=== PATIENT | female | born 1950 | race Caucasian/White ===

== ENCOUNTER → 2017-01-23 | Outpatient (CLI) | payer MEDICARE ==
[~2017-01-23] MED LIST: ACCUNEB 0.1.25 MG/1 INH; ADVAIR DISKUS 21 DSK INH; ASPIRIN81 M1 PO; ATIVAN0.5 MG PO; AVELOX400 MG PO; CLARITIN10 MG PO; FENOFIBRATE MIC67 MG PO; HYDR12.5C PO; LOMOTIL 0.025 M1 TA1 PO; LOSARTAN POT TAB 100; LOSARTAN POT TAB 100 PO; MEDROL DOSEPAK4 MG PO; METFORMIN500 MG PO; PERCOCET 325 MG1 TA2 PO; PREVACID30 M1 PO; PROVENTIL0.09 MG/AC INH; SINGULAIR4 MG PO; TENORMIN25 MG PO; TRICOR145 MG PO; Transderm-Nitr0.2 MG TD; VIBRAMYCIN100 MG PO; ZOLOFT50 MG PO; [UNRECOGNIZED DRUG - OTHER] PO
== END | disposition home or self-care (01) ==
LOC: LAB 13:44
DX: D50.8 Other iron deficiency anemias (principal)

== ENCOUNTER 2017-02-06 12:56 | Inpatient (IN) | payer MEDICARE ==
[~2017-02-06] VITALS: Ht 175.2 cm; Wt 90.5 kg
--- NOTE | ~2017-02-06 | PR ---
[place], [place] PROGRESS NOTE NAME: JULIETH VALDES UNIT #: [id number] ROOM: 415 DOCTOR: CANDIE SERRANO MD BIRTHDATE: [birth year] DOS: 02/09/2017 PULMONARY FOLLOWUP NOTE SUBJECTIVE: She has been noted comfortable at the present time, has not been noted any symptoms of chest pain. Coughing has been still noted moderate to severe. The patient without any sputum expectoration. OBJECTIVE: VITAL SIGNS: The patient showed normal temperature, respiratory rate 20, heart rate 67, blood pressure 178/87. Pulse oxygen saturation noted on room air 96% saturation. HEENT: Examination shows no acute change. NECK: Supple. CARDIOVASCULAR: S1, S2 audible. LUNGS: Noted without any crackles. Mild to moderate expiratory wheezing. ABDOMEN: Soft, nontender. LABORATORY DATA: Culture of the sputum of the patient noted light growth of MRSA. IMPRESSION: 1. Acute methicillin-resistant Staphylococcus aureus tracheobronchitis with exacerbation of chronic obstructive pulmonary disease for the patient as well. 2. Mild obesity. PLAN OF TREATMENT: The patient has been ordered Zyvox orally and also getting vancomycin and Zithromax. Rocephin was also continued. This had been ordered by the primary care physician. Plan of management; discontinuation of unnecessary antibiotics. Plan for bronchoscopy in the morning for this patient. The risks and benefits already known by the patient. Discontinue use of the vancomycin, Rocephin and Zithromax. Also, decrease the dose of Solu-Medrol to 60 mg b.i.d. from today's dose as well. Further treatment changes will be done based on the progression of the illness. [place], [place] PROGRESS NOTE NAME: JULIETH VALDES UNIT #: [id number] ROOM: 415 DOCTOR: CANDIE SERRANO MD BIRTHDATE: [birth year] CANDIE LOERA MD CM:PNTRANS [id number] CANDIE ALVES MD 02/10/17 0025 interface
--- NOTE | ~2017-02-06 | PROC NOTE ---
[place], [place] PROCEDURE NOTE NAME: JULIETH AVLDES UNIT #: [id number] ROOM: 415 DOCTOR: LUZ MARIA ALVES MD,CANDIE BIRTHDATE: [birth year] DOS: 02/10/2017 PROCEDURE: Bronchoscopy. PREOPERATIVE DIAGNOSIS: Severe nonresolving cough. POSTOPERATIVE DIAGNOSIS: Ongoing acute tracheobronchitis with removal of the endobronchial secretion patient and mucus plugs bilaterally. PROCEDURE DESCRIPTION: Informed consent obtained for the patient. The patient was brought to the OR and placed in supine position. Conscious sedation was administered by the Anesthesia Department after achieving appropriate sedation and airway introduced in the mouth. Bronchoscope advanced into the airway into laryngeal area. Epiglottis and vocal cords were seen. Bronchoscope advanced to the vocal cord and tracheal lumen moderate amount of thick mucus secretion severe inflammatory changes, some mucosal edema. All secretions suctioned out patient to the debby level. Right upper, right middle, right lower, left upper and lingular lower lobe bronchi were all examined. The patient was noted findings of severe acute tracheobronchitis with friable mucosa as well. Secretions and infection in the mucus plug and endobronchial tree was cleared out with help of normal saline wash without any difficulty. Procedure was tolerated by the patient without any complications. No changes on modification in the treatment at this time will be necessary. The patient already known with MRSA tracheobronchitis, which has been treated with the antibiotics. Solu-Medrol will be continued the same dose. CANDIE LOERA MD CM:PROCNOTE:PROCEDURE NOTE [id number] CANDIE ALVES MD
--- NOTE | ~2017-02-06 | CON ---
[place], [place] REPORT OF CONSULTATION NAME: JULIETH VALDES [facility] #: [id number] UNIT #: [id number] ROOM: 415 DOCTOR: CANDIE SERRANO MD BIRTHDATE: [birth year] DOS: 02/08/2017 CONSULTATION REQUESTED BY: Hospitalist Service. REASON FOR CONSULTATION: Nonresolving symptoms of acute exacerbation of COPD. HISTORY OF PRESENT ILLNESS: This is a 66-year-old female who has been known to me from the past. She has been seen in my office about a week ago for the patient as the patient started with symptoms of having upper respiratory tract infection with excessive nasal drainage, nasal congestion related to noted with a cough with some sputum expectoration. The patient's symptoms have been noted progressive worsening for the patient. She has been prescribed the antibiotics for the patient orally as well as a tapering dose of prednisone. The patient did not respond to the treatment for that. She contacted my office again and was advised to come to the hospital for further assessment and management of her ongoing nonresolving respiratory symptoms. The patient has been assessed and currently admitted to the hospital for further medical management. The patient denies any symptoms of chest pain. Denies symptoms of hemoptysis. The cough has been still noted moderate severe for the patient only scant amount of sputum expectoration. She has noted partial improvement in symptoms since admission in the last 24 hours. REVIEW OF SYSTEMS: CONSTITUTIONAL: Fatigue and tiredness. The patient noted without any symptoms of fever or chills. EYES: Denied any burning, redness, or tenderness. EARS, NOSE, THROAT: No sore throat, hoarseness, otalgia, or postnasal drainage. CARDIOVASCULAR: Denies anginal pain, edema, pain of the lower extremities. GASTROINTESTINAL: Denies dysphagia, nausea, vomiting, diarrhea, abdominal pain, hematemesis, melena, or hematochezia. SKIN: Denies lesions or rashes. MUSCULOSKELETAL: Denies acute pain for this patient or loss of muscle mass. CENTRAL NERVOUS SYSTEM: Denies dizziness, headache, diplopia or syncopal episodes. The remaining systems were reviewed with the patient, they were noted all negative. PAST MEDICAL HISTORY: 1. Uncomplicated severe persistent bronchial asthma. 2. History of severe allergic rhinitis as well. 3. History of general anxiety disorder. 4. Essential hypertension. PAST SURGICAL HISTORY: 1. Cholecystectomy. 2. Cardiac catheterization and no acute coronary intervention needed; the catheterization done about 12-13 years ago. SOCIAL HISTORY: The patient is , has 2 children, nonsmoker lifetime. Denies history of alcohol or illicit drug use or tobacco use. [place], [place] REPORT OF CONSULTATION NAME: JULIETH VALDES UNIT #: [id number] ROOM: [facility] DOCTOR: CANDIE SERRANO MD BIRTHDATE: [birth year] FAMILY HISTORY: The patient reported as father at age 72 due to complications of coronary artery disease with surgery. The mother at age 7373 years old with complications related to bronchial asthma. MEDICATIONS: The patient noted as listed for the patient at the time of admission from the home for the patient uses: 1. Zithromax recently. 2. Tapering dose of prednisone. 3. Albuterol sulfate via nebulizer for the patient 1.25 mg t.i.d. 4. Advair 500/50 one puff b.i.d. 5. Aspirin 81 mg p.o. daily. 6. Tenormin 50 mg p.o. b.i.d. 7. Tricor 145 mg daily. 8. Hydrochlorothiazide 25 mg daily. 9. Losartan 100 mg p.o. daily. 10. Metformin 500 mg p.o. daily. 11. Singulair 10 mg daily. 12. Multivitamin 1 p.o. daily. 13. Protonix 40 mg daily. ALLERGIES: The drug allergies noted as: 1. AVELOX. 2. IBUPROFEN. 3. TETRACYCLINE. 4. TRAZODONE. 5. SULFA DRUGS. PHYSICAL EXAMINATION: GENERAL: A 66-year-old female who has been currently noted sitting on the bed for the patient without any distress. Height of 5 feet 9 inches, weight of 199 pounds, BMI 29.4. VITAL SIGNS: For the patient which were recorded showed the temperature noted normal, respiratory rate 17-20, heart rate of 70-63, blood pressure 156/81, patient 145/75. HEENT: Shows head was atraumatic. Eyes nonicterus. NECK: Supple. CARDIOVASCULAR: S1, S2 is audible. No added sounds. LUNGS: The patient noted with moderate decreased breath sounds. Diffuse expiratory wheezing. There were no crackles. ABDOMEN: Soft, nontender. EXTREMITIES: Show no edema, clubbing, cyanosis. CENTRAL NERVOUS SYSTEM: Cranial nerves 2 through 12 intact. MUSCULOSKELETAL: No deformities. SKIN: No lesions or rashes. LABORATORY DATA: CBC of the patient on February 06 was noted hemoglobin 10.4, hematocrit 32.9 and platelet count 408,000. The CMP of the patient of 02/06, glucose 195, BUN 25, creatinine was normal, remaining electrolytes normal. [place], [place] REPORT OF CONSULTATION NAME: JULIETH VALDES UNIT #: [id number] ROOM: [facility] DOCTOR: LUZ MARIA ALVES MD,[facility] BIRTHDATE: [birth year] CK-MB is reported for and for all noted normal. The CBC of the patient of yesterday shows WBC count 12.3, hemoglobin of 10.5, hematocrit 32.9, platelet count 514,000. CMP of the patient on 01/07, glucose 171, BUN 25, creatinine was normal. The echocardiogram for the patient that was done for the patient on 01/07/2017 for the patient was described by Dr. Champion for the patient with findings of mild concentric LVH with the patient with a normal left ventricular functions. Grade 1 diastolic dysfunctions were described. Culture of the sputum for the patient was showing normal stevan from yesterday. Gram stain of the patient on 02/07 reported as many white blood cells, moderate gram-positive cocci in pairs and clusters and few budding yeast. The chest x-ray of the patient that was done on 02/06/2017 does not show any acute pulmonary infiltration. IMPRESSION: 1. The patient with failed outpatient treatment, currently admitted to the hospital noted with acute exacerbation of uncomplicated severe persistent bronchial asthma and acute bacterial bronchitis. Severe symptom for the patient was still noted at this time, which has been treated with the medications appropriately. According to the niece, the cough still remains persistent and was suggestive of mucus impaction since the patient has not been responding to treatment significantly at this time, minimal sputum expectoration was noted. PLAN OF TREATMENT: Plan for bronchoscopy for patient on Friday morning. Continue current antibiotics, corticosteroids and other medications administration. Mucinex will be added for the patient for treatment the patient to help improve the secretion clearance and the patient mobilize secretions. Other supportive therapy, plan of management and care. Thanks for allowing me to participate in the care of this patient. CANDIE LOERA MD CM:CONSTR:REPORT OF CONSULTATION 1252 02/09/17 0217 interface
--- NOTE | ~2017-02-06 | PR ---
[place], [place] PROGRESS NOTE NAME: [facility]DES [id number] UNIT #: [id number] ROOM: 415 DOCTOR: LUZ MARIA ALVES MD,CANDIE BIRTHDATE: [birth year] DOS: 02/11/2017 SUBJECTIVE: She had a bronchoscopy done yesterday with significant reduction and improvement in the cough was noted. Shortness of breath and wheezing has been improving progressively. There were no symptoms of chest pain. OBJECTIVE: VITAL SIGNS: Normal temperature, respiratory rate 20, heart rate 94, blood pressure 119/52. The pulse oxygen saturation of the patient recorded as 97% on 2 L nasal cannula. HEENT: Showed no acute change. NECK: Supple. CARDIOVASCULAR: S1, S2 audible. LUNGS: Noted without any wheezing or crackles at the present time. Breath sounds noted moderate decreased bilaterally. ABDOMEN: Soft and nontender. LABORATORY DATA: The Gram stain of the bronchial washing was noted, few white blood cells, moderate epithelial cells, moderate gram-positive cocci in pairs. Budding yeast, moderate growth of yeast was noted. Preliminary findings of culture results were pending. IMPRESSION: The patient who has been currently noted with acute exacerbation of bronchial asthma, acute tracheobronchitis with methicillin-resistant Staphylococcus aureus is responding to treatment. Bronchoscopy resulted further significant improvement and resolution of the acute complaints. PLAN OF TREATMENT: The patient could be discharged home on oral antibiotics, bronchodilators, and oxygen supplementation. Other supportive therapy, plan of management continued. Usual care. CANDIE LOERA MD CM:PNJONATHAN [id number] CANDIE ALVES MD 02/11/17 1343 interface
--- NOTE | ~2017-02-06 | PR ---
[place], [place] PROGRESS NOTE NAME: JULIETH VALDES UNIT #: [id number] ROOM: 415 DOCTOR: CANDIE SERRANO MD BIRTHDATE: [birth year] DOS: 02/10/2017 PULMONARY PROGRESS NOTE SUBJECTIVE: The patient was seen and examined on 02/10/2017. The patient has been noted comfortable at this time without any distress. The cough has been noted essentially the same. She is currently noted n.p.o. past midnight for bronchoscopy planned for this morning as well. Denies symptoms of chest pain. OBJECTIVE: VITAL SIGNS: For the patient, which have been recorded showed the temperature of the patient noted as normal. The respiratory rate of the patient recorded as 18, heart rate 75, blood pressure 151/106. The pulse oxygen saturation of the patient noted on room air as 99% saturation. HEENT: Shows no new change. NECK: Supple. CARDIOVASCULAR: S1, S2 audible. LUNGS: Noted with moderate decreased breath sounds with expiratory wheezing. No crackles. ABDOMEN: Soft, nontender. LABORATORY DATA: BMP today, glucose 180, BUN 30, creatinine was normal. CBC this morning, WBC count 17.6, hemoglobin 11.4, hematocrit 35.4, platelet count 647,000. IMPRESSION: 1. The patient with ongoing acute exacerbation of bronchial asthma, acute tracheobronchitis persistence nonproductive cough. 2. Mild azotemia secondary to corticosteroids. 3. Leukocytosis, most likely steroid induced. PLAN OF TREATMENT: Proceed with the bronchoscopy as planned for the patient today. No other change in the treatment of the patient at this time will be necessary. Supportive plan and management and other care. Usual treatment. Any modification in treatment if necessary will be done after bronchoscopy. [place], [place] PROGRESS NOTE NAME: JULIETH VALDES UNIT #: [id number] ROOM: 415 DOCTOR: CANDIE SERRANO MD BIRTHDATE: [birth year] CANDIE LOERA MD CM:PNTRANS [id number] CANDIE ALVES MD 02/10/17 1413 interface
[2017-02-06 13:00] VITALS: BP 162/83
[2017-02-06] MEDS ORDERED: PREDNISONE10 MG PO (13:24)
[2017-02-06] MEDS ORDERED: ZITHROMAX250 MG PO (13:25)
[2017-02-06 13:33] LABS: HEMATOCRIT 32.9 % (37.0-47.0); HEMOGLOBIN 10.4 g/dl (12.0-16.0); MEAN CORPUSCULAR HGB 24.6 pg (27.0-31.0); MEAN CORPUSCULAR HGB CONC 31.6 g/dl (33.0-37.0); MEAN PLATELET VOLUME 9.6 fl (9.6-12.3); PLATELET COUNT AUTOMATED 408 10*3/uL (130-400); RED BLOOD COUNT 4.22 10*6/uL (4.10-5.10)
[2017-02-06 13:47] LABS: ALBUMIN 3.8 gm/dl (3.1-4.5); ALKALINE PHOSPHATASE 79 U/L (45-117); BILIRUBIN, TOTAL 0.2 mg/dl (0.2-1.0); BUN 25 mg/dl (7-24); CARBON DIOXIDE 25 mmol/L (21-32); CHLORIDE 102 mmol/L (98-107); EST GLOM FILT AFRICAN AMERICAN > 60 ml/min; GLUCOSE 195 mg/dL (65-99); POTASSIUM 3.9 mmol/L (3.5-5.1); SGOT/AST 24 IU/L (3-35); SGPT/ALT 24 U/L (12-78); SODIUM 140 mmol/L (136-145); TOTAL PROTEIN 7.7 gm/dL (6.4-8.2)
[2017-02-06 13:56] LABS: LYMPHOCYTE # 0.9 10*3/uL (1.3-4.4); METAMYELOCYTES 1 % (0-0); MONOCYTE # 0.3 10*3/uL (0.1-1.0); MYELOCYTES 1 % (0-0); NEUTROPHIL # 8.6 10*3/uL (2.3-7.9); NEUTROPHILS 86 % (47-73); TOTAL CELLS COUNTED 100 #CELLS
[2017-02-06 13:57] LABS: HYPOCHROMIA SLIGHT; MICROCYTOSIS SLIGHT; PLATELET SUFFICIENCY NORMAL (NORMAL)
[2017-02-06 14:26] VITALS: BP 135/80
[2017-02-06] MEDS ORDERED: COZAAR100 MG PO (15:40)
[2017-02-06] MEDS ORDERED: SINGULAIR10 M1 PO (15:41)
[2017-02-06] MEDS ORDERED: TENORMIN50 MG PO (15:41)
[2017-02-06] MEDS ORDERED: MULTI-DAY VITA1 EACH PO (15:42)
[2017-02-06] MEDS ORDERED: ADVAIR DISKUS 51 DSK INH (15:43)
[2017-02-06] MEDS ORDERED: PROTONIX40 MG PO (15:44)
[2017-02-06] MEDS ORDERED: TRAZODONE50 MG PO (15:45)
[2017-02-06] MEDS ORDERED: PROVENTIL0.09 MG/A1 INH (15:46)
[2017-02-06 16:00] VITALS: BP 156/82
[2017-02-06 20:00] VITALS: BP 137/90
[2017-02-07] VITALS: BP 125/58
[2017-02-07 06:29] LABS: HEMATOCRIT 32.9 % (37.0-47.0); HEMOGLOBIN 10.5 g/dl (12.0-16.0); MEAN CORPUSCULAR HGB 24.6 pg (27.0-31.0); MEAN CORPUSCULAR HGB CONC 31.9 g/dl (33.0-37.0); PLATELET COUNT AUTOMATED 514 10*3/uL (130-400); RED BLOOD COUNT 4.27 10*6/uL (4.10-5.10); RED CELL DISTRI WIDTH 14.8 % (0-14.5); WHITE BLOOD COUNT 12.3 10*3/uL (4.8-10.8)
[2017-02-07 06:50] LABS: HYPOCHROMIA SLIGHT; LYMPHOCYTE # 2.3 10*3/uL (1.3-4.4); METAMYELOCYTES 3 % (0-0); MICROCYTOSIS SLIGHT; NEUTROPHIL # 8.6 10*3/uL (2.3-7.9); NEUTROPHILS 70 % (47-73); PLATELET SUFFICIENCY HIGH (NORMAL); TOTAL CELLS COUNTED 100 #CELLS
[2017-02-07 06:58] LABS: ALBUMIN 3.6 gm/dl (3.1-4.5); ALKALINE PHOSPHATASE 76 U/L (45-117); BILIRUBIN, TOTAL 0.2 mg/dl (0.2-1.0); BUN 25 mg/dl (7-24); CARBON DIOXIDE 28 mmol/L (21-32); CHLORIDE 100 mmol/L (98-107); CHOLESTEROL 227 mg/dL (<200); EST GLOM FILT AFRICAN AMERICAN > 60 ml/min; GLUCOSE 171 mg/dL (65-99); HDL CHOLESTEROL 42 mg/dl (40-60); LDL CHOLESTEROL 127 mg/dL (9-159); MAGNESIUM 2.2 mg/dL (1.5-2.1); PHOSPHOROUS 3.5 mg/dL (2.5-4.9); POTASSIUM 3.9 mmol/L (3.5-5.1); SGOT/AST 15 IU/L (3-35); SGPT/ALT 24 U/L (12-78); SODIUM 139 mmol/L (136-145); TOTAL PROTEIN 7.5 gm/dL (6.4-8.2); TRIGLYCERIDES 289 mg/dl (<150); VLDL CHOLESTEROL 58 mg/dL (6-40)
[2017-02-07 07:03] LABS: THYROID STIM HORMONE (HS) 0.297 uIU/ml (0.358-4.75)
[2017-02-07 07:04] LABS: VITAMIN D, 25-HYDROXY 32.6 ng/mL (30-100)
[2017-02-07 07:05] LABS: FOLIC ACID 20.08 ng/mL (>5.38)
[2017-02-07 08:00] VITALS: BP 176/88
[2017-02-07 12:00] VITALS: BP 140/86
[2017-02-07 16:00] VITALS: BP 129/70
[2017-02-07 20:22] VITALS: BP 128/76
[2017-02-08] VITALS: BP 145/75
[2017-02-08 04:00] VITALS: BP 145/75
[2017-02-08 08:00] VITALS: BP 156/80
[2017-02-08 11:50] LABS: INTERNATIONAL NORM RATIO 0.9 (2.0-3.5); PROTHROMBIN TIME 9.7 SECONDS (9.0-12.4)
[2017-02-08 12:00] VITALS: BP 142/65
[2017-02-08 12:40] LABS: COL/ADP 155 SECONDS (63-105); COL/EPI > 300 SECONDS (86-157)
[2017-02-08 16:00] VITALS: BP 146/85
[2017-02-08 20:00] VITALS: BP 156/90
[2017-02-09] VITALS: BP 142/60
[2017-02-09 08:00] VITALS: BP 141/67
[2017-02-09] MEDS ORDERED: LINEZOLID600 MG PO (11:51)
[2017-02-09 12:00] VITALS: BP 178/87
[2017-02-09 16:00] VITALS: BP 136/77
[2017-02-09 20:00] VITALS: BP 139/64
[2017-02-10] VITALS (9 sets, daily range): BP systolic 130–189; BP diastolic 61–106
[2017-02-10 06:10] LABS: HEMATOCRIT 35.8 % (37.0-47.0); HEMOGLOBIN 11.4 g/dl (12.0-16.0); MEAN CORPUSCULAR HGB 24.5 pg (27.0-31.0); MEAN CORPUSCULAR HGB CONC 31.8 g/dl (33.0-37.0); MEAN PLATELET VOLUME 9.9 fl (9.6-12.3); PLATELET COUNT AUTOMATED 647 10*3/uL (130-400); RED BLOOD COUNT 4.65 10*6/uL (4.10-5.10); RED CELL DISTRI WIDTH 14.5 % (0-14.5); WHITE BLOOD COUNT 17.6 10*3/uL (4.8-10.8)
[2017-02-10 06:42] LABS: BUN 30 mg/dl (7-24); CARBON DIOXIDE 31 mmol/L (21-32); CHLORIDE 99 mmol/L (98-107); EST GLOM FILT AFRICAN AMERICAN > 60 ml/min; GLUCOSE 180 mg/dL (65-99); POTASSIUM 4.3 mmol/L (3.5-5.1); SODIUM 138 mmol/L (136-145)
[2017-02-10 06:43] LABS: INTERNATIONAL NORM RATIO 0.9 (2.0-3.5)
[2017-02-10 06:48] LABS: LYMPHOCYTE # 3.5 10*3/uL (1.3-4.4); METAMYELOCYTES 1 % (0-0); MONOCYTE # 1.1 10*3/uL (0.1-1.0); MYELOCYTES 2 % (0-0); NEUTROPHIL # 12.5 10*3/uL (2.3-7.9); NEUTROPHILS 71 % (47-73); TOTAL CELLS COUNTED 100 #CELLS
[2017-02-10 06:49] LABS: HYPOCHROMIA SLIGHT; MICROCYTOSIS SLIGHT; PLATELET SUFFICIENCY HIGH (NORMAL)
[2017-02-11] VITALS: BP 114/62
[2017-02-11 08:00] VITALS: BP 119/52
[2017-02-11 12:00] VITALS: BP 178/80
[2017-02-11 13:08] LABS: ACID FAST SPEC PROCESSING Concentration (.)
[2017-02-12] MEDS ORDERED: PREDNISONE10 MG PO (08:47)
== END 2017-02-11 13:47 | disposition home or self-care (01) | DRG 871 ==
LOC: ED 12:56 → 4E 14:22 → EDHOLD 14:22 → 4E 14:29
PROVIDERS: Hospitalist; Internal Medicine; Internal Medicine Critical Care Medicine; Student in an Organized Health Care Education/Training Program
PROC: 0BC58ZZ Extirpation of Matter from Right Middle Lobe Bronchus, Via Natural or Artificial Opening Endoscopic (ICD-10-PCS; principal; 2017-02-10)
PROC: 0BC68ZZ Extirpation of Matter from Right Lower Lobe Bronchus, Via Natural or Artificial Opening Endoscopic (ICD-10-PCS; principal; 2017-02-10)
PROC: 0BC88ZZ Extirpation of Matter from Left Upper Lobe Bronchus, Via Natural or Artificial Opening Endoscopic (ICD-10-PCS; principal; 2017-02-10)
PROC: 0BC48ZZ Extirpation of Matter from Right Upper Lobe Bronchus, Via Natural or Artificial Opening Endoscopic (ICD-10-PCS; principal; 2017-02-10)
PROC: 0BC98ZZ Extirpation of Matter from Lingula Bronchus, Via Natural or Artificial Opening Endoscopic (ICD-10-PCS; principal; 2017-02-10)
DX: A41.9 Sepsis, unspecified organism (principal); J18.9 Pneumonia, unspecified organism; T17.890A Other foreign object in other parts of respiratory tract causing asphyxiation, initial encounter; J44.0 Chronic obstructive pulmonary disease with (acute) lower respiratory infection; J45.51 Severe persistent asthma with (acute) exacerbation; J44.1 Chronic obstructive pulmonary disease with (acute) exacerbation; J20.9 Acute bronchitis, unspecified; F41.1 Generalized anxiety disorder; I10 Essential (primary) hypertension; D50.9 Iron deficiency anemia, unspecified; D47.3 Essential (hemorrhagic) thrombocythemia; E78.5 Hyperlipidemia, unspecified; R73.9 Hyperglycemia, unspecified; B95.62 Methicillin resistant Staphylococcus aureus infection as the cause of diseases classified elsewhere; E66.9 Obesity, unspecified; R79.89 Other specified abnormal findings of blood chemistry; T38.0X5A Adverse effect of glucocorticoids and synthetic analogues, initial encounter; Z90.49 Acquired absence of other specified parts of digestive tract; Z82.49 Family history of ischemic heart disease and other diseases of the circulatory system; Z82.5 Family history of asthma and other chronic lower respiratory diseases; Z88.1 Allergy status to other antibiotic agents; Z88.6 Allergy status to analgesic agent; Z88.2 Allergy status to sulfonamides; Z79.82 Long term (current) use of aspirin; Z79.84 Long term (current) use of oral hypoglycemic drugs; Z79.899 Other long term (current) drug therapy; Z68.33 Body mass index [BMI] 33.0-33.9, adult; X58.XXXA Exposure to other specified factors, initial encounter; Y92.89 Other specified places as the place of occurrence of the external cause; Y93.89 Activity, other specified; Y99.8 Other external cause status

== ENCOUNTER → 2017-02-26 | Outpatient (CLI) | payer MEDICARE ==
[~2017-02-26] MED LIST changes: +ADVAIR DISKUS 51 DSK INH; +COZAAR100 MG PO; +LINEZOLID600 MG PO; +MULTI-DAY VITA1 EACH PO; +PREDNISONE10 MG PO; +PROTONIX40 MG PO; +PROVENTIL0.09 MG/A1 INH; +SINGULAIR10 M1 PO; +TENORMIN50 MG PO; +TRAZODONE50 MG PO; +ZITHROMAX250 MG PO
== END | disposition home or self-care (01) ==
LOC: LAB 10:27
DX: A09 Infectious gastroenteritis and colitis, unspecified (principal)

== ENCOUNTER 2017-08-06 13:09 | Inpatient (IN) | payer MEDICARE ==
[~2017-08-06] VITALS: Ht 157.5 cm; Wt 82.4 kg
--- NOTE | ~2017-08-06 | EKG ---
[place], [place] ELECTROCARDIOGRAM REPORT NAME: JULIETH VALDES UNIT #: [id number] ROOM: [facility] DOCTOR: LUZ MARIA ALVES MD,CANDIE BIRTHDATE: [birth year] DOS: 08/09/2017 ELECTROCARDIOGRAM TIME: Done at 11:00 a.m. Normal sinus rhythm were noted. The patient with heart rate of 76 beats per minute. Abnormal R-wave progression was noted in the lateral leads. Possibility of inferior myocardial infarction was also suspected. CANDIE LOERA MD CM:EKGRPT:ELECTROCARDIOGRAM REPORT CANDIE ALVES MD
--- NOTE | ~2017-08-06 | PR ---
[place], [place] PROGRESS NOTE [id number] UN[facility] #: [id number] ROOM: 520 DOCTOR: LUZ MARIA ALVES MD,CANDIE BIRTHDATE: [birth year] DOS: 08/08/2017 SUBJECTIVE: She has been noted with reduction of respiratory symptoms from yesterday, but still noted with nonproductive cough with wheezing and shortness of breath. Denies symptoms of chest pain. OBJECTIVE: VITAL SIGNS: Afebrile status, respiratory rate 20, heart rate 84, blood pressure 160/88 recorded this morning. Pulse oxygen saturation on room air 98% saturation recorded. HEENT: No acute change. NECK: Supple. CARDIOVASCULAR: S1, S2 audible. LUNGS: Noted with decreased breath sounds in the lungs with moderate expiratory wheezing, without any crackles. ABDOMEN: Soft, nontender, and obese. EXTREMITIES: No edema. LABORATORY DATA: Glucose 188. Otherwise, BMP normal. CBC: WBC count 14.8, hemoglobin 9.5, hematocrit 30.2, platelet count 473,000, and 86% segmented neutrophils noted with differential. IMPRESSION: 1. The patient with acute exacerbation of uncomplicated, severe, persistent bronchial asthma, acute bronchitis, viral or bacterial at this time was not clear. 2. Chronic obesity. PLAN OF MANAGEMENT: Continue current dose of corticosteroids and bronchodilators since partial improvement occurred in the respiratory symptoms. Monitor results of the respiratory viral panel. Other supportive plan of management therapy and care. CANDIE LOERA MD CM:PNTRANS [id number] CANDIE ALVES MD 08/08/17 1434 interface
--- NOTE | ~2017-08-06 | PR ---
[place], [place] PROGRESS NOTE NAME: JULIETH VALDES UNIT #: [id number] ROOM: 520 DOCTOR: CANDIE SERRANO MD BIRTHDATE: [birth year] DOS: 08/09/2017 SUBJECTIVE: She had developed significant cough for the patient, but still remain nonproductive. She was also complaining of having choking spell that she would try to eat solid food. Denies symptoms of hemoptysis. Given symptomatic management cough, continue corticosteroids, bronchodilators, and other intervention. OBJECTIVE: VITAL SIGNS: The patient showed normal temperature, respiratory rate 20, heart rate 96, blood pressure 124/61 and 164/94. Intake is 2800 mL of 4600 mL. Pulse oxygen saturation on room air 98% saturation. HEENT: Showed no acute change. NECK: Supple. CARDIOVASCULAR: S1, S2 is audible. LUNGS: Moderate decreased breath sounds, expiratory wheezing, noted partially decreased from previous examination. ABDOMEN: Soft, nontender and obese. EXTREMITIES: Without edema. LABORATORY DATA: Culture of the sputum preliminary showed normal stevan from 08/08/2017, and also 08/08/2017, many white blood cells, moderate epithelial cells, gram-positive cocci in pairs and chains with few gram-positive cocci in clusters and budding yeast. IMPRESSION: 1. The patient has been noted with ongoing severe exacerbation of uncomplicated severe persistent bronchial asthma, acute tracheobronchitis. 2. Acute dysphagia to the solid rule out the esophageal stricture as well. 3. The patient with obesity. PLAN OF MANAGEMENT: GI consultation will be obtained for the patient for endoscopy assessment of current dysphagia, possible esophageal stricture may be considered likely, continue current dose of corticosteroids and other symptomatic management of cough. She was planned for bronchoscopy to be done Friday to improve the mucus clearance of mucus plug from the major airways. Other supportive therapy, plan of management continue previously. Usual care and therapies. [place], [place] PROGRESS NOTE NAME: JULIETH VALDES UNIT #: [id number] ROOM: 520 DOCTOR: CANDIE SERRANO MD BIRTHDATE: [birth year] CANDIE LOERA MD CM:PNTRANS [id number] 1416 CANDIE ALVES MD 08/09/17 1416 interface
--- NOTE | ~2017-08-06 | CON ---
[place], [place] REPORT OF CONSULTATION NAME: JULIETH VALDES [facility] #: [id number] UNIT #: [id number] ROOM: 520 DOCTOR: LUZ MARIA ALVES MD,CANDIE BIRTHDATE: [birth year] DOS: 08/07/2017 REASON FOR CONSULTATION: To assess the patient for increased her respiratory symptoms with exacerbation of COPD. HISTORY OF PRESENT ILLNESS: A 67-year-old white female who has been seen in my office this Friday. She presented to my office as she developed acute respiratory symptom for about 3 days, over the weekend starting Friday. The patient was prescribed amoxicillin. She was only noted symptoms of cough, which is described moderate without any sputum expectoration. She was not noted any symptoms of wheezing or shortness of breath. The patient started taking the medication. The symptoms had been noted worsened significantly the in the next 24 hours with a severe increased cough. The patient has chest congestion without any sputum expectoration. The coughing has been noted episodic. She was also later on developed significant wheezing and dyspnea with exertional activities. She came into the Emergency Room where she had been assessed and hospitalized for further medical management since 08/06/2017. The patient reported reduction of the coughing frequency and intensity. Some sputum expectoration has been noted at time with cough and wheezing. The patient was noted moderate severely with the shortness breath, partially decreased. REVIEW OF SYSTEMS: CONSTITUTIONAL: With symptoms of fatigue and tiredness reported with the symptoms of fever or chills. EYES: Denies any burning, redness, tenderness. EARS, NOSE, THROAT: No sore throat, hoarseness, otalgia, postnasal drainage or epistaxis. CARDIOVASCULAR: Denies anginal pain, edema or pain of the lower extremity. GASTROINTESTINAL: Denies symptoms of dysphagia, nausea, vomiting, diarrhea, abdominal pain, hematemesis, melena, hematochezia, or any abdominal weight loss history, history of moderate obesity was known. GENITOURINARY SYMPTOMS: Dysuria, suprapubic pain, hematuria. SKIN: Denies lesions or rashes. MUSCULOSKELETAL: No acute joint pain, redness, tenderness. CENTRAL NERVOUS SYSTEM: Some dizziness, headache, diplopia, syncopal episode, tingling sensation of extremities. The remaining systems were reviewed. They were noted all negative. PAST MEDICAL HISTORY: 1. Known with history of uncomplicated severe persistent bronchial asthma. 2. Allergic rhinitis. 3. Anxiety disorder. 4. Essential hypertension. 5. Moderate obesity. 6. Hyperlipidemia. 7. History of gastroesophageal reflux. PAST SURGICAL HISTORY: 1. Cholecystectomy. [place], [place] REPORT OF CONSULTATION NAME: JULIETH VALDES UNIT #: [id number] ROOM: [facility] DOCTOR: CANDIE SERRANO MD BIRTHDATE: [birth year] 2. Cardiac catheterization in the past. SOCIAL HISTORY: The patient is , has 2 children. Lifetime nonsmoker. Alcohol use, illicit drug use. Occupation related pulmonary exposure. FAMILY HISTORY: The patient's father passed at the age of 7272 years old, complication of coronary artery disease. Mother passed at the age of 7373 years old, complication related to bronchial asthma. CURRENT MEDICATIONS: Noted for the patient use of atenolol, fluticasone nasal spray, Singulair, hydrochlorothiazide, Dulera, sertraline, multivitamin, losartan, loratadine, hydroxyzine, fenofibrate, vitamin D, aspirin, Protonix. DRUG ALLERGY HISTORY: The patient was noted as 1. SULFA DRUG. 2. IBUPROFEN. 3. TETRACYCLINE. 4. TRAZODONE. 5. AVELOX. PHYSICAL EXAMINATION: GENERAL: A 67-year-old female who has been currently noted to be awake and alert with some audible wheezing, ill looking. Height of 5 feet 2 inches, weight of rather 181 pounds, BMI 33.1. VITAL SIGNS: For the patient which has been recorded showed normal temperature. HEENT: Nasal mucosa noted congested. Head was atraumatic. Eyes, nonicterus. NECK: Supple. CARDIOVASCULAR: S1, S2 audible. LUNGS: Diffuse expiratory wheezing were noted new since compared to my examination today in the office. There were no crackles heard. ABDOMEN: Soft with moderate obesity. Bowel sounds present without any tenderness. CENTRAL NERVOUS: No gross focal neurologic deficit. The patient was noted cranial nerves 2-12 intact. No focal deficit. MUSCULOSKELETAL: No deformities. SKIN: Without lesions or rashes. LABORATORY DATA: Lactic acid 2.4 on admission. Followup lactic acid later on 2.4. From yesterday, CBC of 08/06/2017, WBC count 12.7, hemoglobin 10.7, hematocrit 34.0, platelet count 479,000. PT and PTT on 08/06/2017 was normal. CMP of the patient on 08/06/2017, glucose 138, BUN and creatinine was normal. Influenza A and B, nasal washing antigen yesterday were taken and they were noted as negative. CBC of 08/07/2017, WBC count 12.5, hemoglobin 9.5, hematocrit 30.1, platelet count 418,000. BMP this morning, glucose 199. Remaining electrolytes were normal. Chest x-ray, 1 view, which was done for the patient in the Emergency Room yesterday. Upon admission, was noted essentially a normal study. IMPRESSION: 1. The patient was admitted to the hospital, developed severe increase acute [place], [place] REPORT OF CONSULTATION NAME: JULIETH VALDES UNIT #: [id number] ROOM: [facility] DOCTOR: LUZ MARIA ALVES MD,CANDIE BIRTHDATE: [birth year] exacerbation of uncomplicated severe persistent bronchial asthma, possible, most likely initiation with viral illness and probably bacterial infection superimposed would be considered at this time as of acute bacterial bronchitis. 2. History of moderate obesity. 3. Anxiety disorder. 4. History of severe environmental allergies, so the patient with allergic rhinitis. PLAN OF MANAGEMENT: The patient has been ordered a respiratory viral panel as well. The influenza A and B, nasal washing antigens were noted negative. She has been currently getting Solu-Medrol 60 mg q.8 hours, which will be continued. Bronchodilator will be continued every 4 hours. Sputum for Gram stain and culture. All other supportive therapy, plan of management is in progress will be continued. Additional change in treatment will be recommended. The patient based on the progression of the illness on this followup. Sputum for Gram stain culture has been ordered. Thanks for allowing me to participate in the care of this patient. CANDIE LOERA MD CM:CONSTR:REPORT OF CONSULTATION 1232 08/07/17 1903 interface
--- NOTE | ~2017-08-06 | PROC NOTE ---
[place], [place] PROCEDURE NOTE NAME: JULIETH VALDES UNIT #: [id number] ROOM: 520 DOCTOR: LUZ MARIA ALVES MD,CANDIE BIRTHDATE: [birth year] DOS: 08/11/2017 BRONCHOSCOPY REPORT PREOPERATIVE DIAGNOSES: Very severe nonproductive cough for the patient was noted with ongoing exacerbation of bronchial asthma. POSTOPERATIVE DIAGNOSES: The patient with severe inflammation noted. Endobronchial tree for this patient with a large amount of mucus plug. The patient also clear of endobronchial tree bilaterally. PROCEDURE DONE: Bronchoscopy. PROCEDURE DESCRIPTION: Informed consent obtained for the patient. The patient brought to the OR and placed in supine position. Conscious sedation administered by the Anesthesia Department. After achieving proper sedation, airway was introduced into the mouth. Bronchoscope advanced to the airway into laryngeal area. Epiglottis and vocal cord were seen. Vocal cord noted yellowish in color moving symmetrically with the movement. Bronchoscope advanced to the vocal cord and tracheal lumen as well. Tracheal lumen for the patient was noted with moderate amount of thick mucus secretion for this patient and severe redness of the mucosa and inflammatory changes. All secretions suctioned out to the debby level. Right upper, right middle, right lower, left upper, lingula, all the bronchi were noted for this patient, impacted with thick mucus plugs which were cleared with normal saline wash, and sent for culture. Procedure well tolerated by the patient without any difficulty. Transient hypoxia noted, which was treated with withdrawal of the bronchoscope and supplementation of the oxygen. The patient would be considered for the patient for assessment of possible obstructive sleep apnea disorder as an outpatient because of the current anatomy the patient upper airways and the hypoxia. CANDIE LOERA MD CM:PROCNOTE:PROCEDURE NOTE [id number] CANDIE ALVES MD
--- NOTE | ~2017-08-06 | PR ---
[place], [place] PROGRESS NOTE NAME: JULIETH VALDES [facility] #: [id number] UNIT #: [id number] ROOM: 520 DOCTOR: LUZ MARIA ALVES MD,CANDIE BIRTHDATE: [birth year] DOS: 08/12/2017 SUBJECTIVE: She had a bronchoscopy done yesterday. Significant reduction of symptoms of cough was noted. Cough has been noted mildly productive at this time, but the intensity and frequency have improved significantly. Shortness of breath and wheezing have also resolved significantly. OBJECTIVE: VITAL SIGNS: Normal temperature this morning, respiratory rate 18, heart rate 78, blood pressure 150/90. Pulse oxygen saturation on room air 96% saturation. HEENT: Showed no acute change. NECK: Supple. CARDIOVASCULAR: S1, S2 audible. LUNGS: The patient was noted without any wheeze or crackles at present time. ABDOMEN: Soft and nontender. EXTREMITIES: Without any acute edema. LABORATORY DATA: Culture of the bronchial washing, preliminary showing normal stevan; final culture results are pending. Blood culture which was done on admission was noted without any bacterial isolation. IMPRESSION: 1. Progressive resolution of acute exacerbation of bronchial asthma with acute tracheobronchitis. 2. Influenza infection, which is also improving progressively. PLAN OF MANAGEMENT: Continuation of the current therapy. Plan of management at this time without any changes. The patient could be considered for discharge to home on oral medications as well. Additional treatment changes will to be made based on progression of illness. The patient still remains in the hospital. CANDIE LOERA MD CM:PNTRANS [phone] CANDIE ALVES MD 08/12/17 1313 interface
--- NOTE | ~2017-08-06 | PR ---
[place], [place] PROGRESS NOTE NAME: JULIETH VALDES UNIT #: [id number] ROOM: 520 DOCTOR: CANDIE SERRANO MD BIRTHDATE: [birth year] DOS: 08/11/2017 SUBJECTIVE: The patient seen and examined on 08/11/2017. She is n.p.o. past midnight and bronchoscopy planned today. She was noted with persistent severe hacking cough with expectoration of sputum. The cough remains episodic and severe. Her shortness breath and wheezing continued to improve gradually. The patient denies symptoms of chest pain. Complains of general weakness. Denies any edema or pain of the lower extremities. Denies nausea and vomiting. OBJECTIVE: VITAL SIGNS: Normal temperature, respiratory rate 18, heart rate of 102, blood pressure 154/79-124/73. Pulse oxygen saturation with the patient on 2 L nasal cannula 96% saturation. GENERAL: Chronic obesity. NECK: Supple. CARDIOVASCULAR: S1, S2 audible. LUNGS: The patient was noted without any crackles, rhonchi, or wheezing. ABDOMEN: Soft and nontender. GENITOURINARY: The patient was noted without any gross focal deficit. LABORATORY DATA: CBC today, WBC count 15,000, hemoglobin 10.7, hematocrit 34.3, platelet count of ____. BMP of the patient this morning, BUN 33, creatinine was normal. Glucose mildly elevated at 182. IMPRESSION: 1. The patient with ongoing severe acute bronchitis, possibly superimposed after viral infection with influenza A and B. 2. Leukocytosis as well. 3. Acute exacerbation of uncomplicated severe persistent bronchial asthma. 4. Chronic obesity as well. PLAN OF MANAGEMENT: Proceed with bronchoscopy as planned. Continuation of the bronchodilators with oxygen supplementation is in progress. Continuation of the symptomatic cough management. The dose of Solu-Medrol, however, will be decreased for the patient to 40 mg b.i.d. since reduction of the wheezing was noted. Additional treatment changes could be made for the patient after the bronchoscopy as needed. [place], [place] PROGRESS NOTE NAME: JULIETH VALDES UNIT #: [id number] ROOM: 520 DOCTOR: CANDIE SERRANO MD BIRTHDATE: [birth year] CANDIE LOERA MD CM:PNTRANS 1048 CANDIE ALVES MD 08/12/17 0115 interface
--- NOTE | ~2017-08-06 | PR ---
[place], [place] PROGRESS NOTE NAME: JULIETH VALDES UNIT #: [id number] ROOM: 520 DOCTOR: CANDIE SERRANO MD BIRTHDATE: [birth year] DOS: 08/10/2017 SUBJECTIVE: She has been still noted the coughing remains nonproductive intermittently and episodic. Shortness breath and wheezing has been noted partially decreased. She denies any chest pain. She was still noted symptoms, dysphagia. OBJECTIVE: VITAL SIGNS: Normal temperature, respiratory rate 18, heart rate 92, blood pressure 133/76. Pulse oxygen saturation on room air 97% saturation. HEENT: No acute change. NECK: Supple. CARDIOVASCULAR: S1, S2 audible. LUNGS: Moderate decreased breath sounds with expiratory wheezing, no crackles. ABDOMEN: Soft, nontender. LABORATORY DATA: Influenza A and B antigen for which the patient was noted as positive. IgG mycoplasma noted mildly elevated consistent with older infection. The other respiratory viral panel for the patient was noted negative. Urine for legionella antigen was noted as negative. IMPRESSION: 1. The patient who has been currently noted with acute severe bronchitis related to influenza A infection for this patient with acute exacerbation uncomplicated severe persistent bronchial asthma. 2. Dysphagia. PLAN OF TREATMENT: Continuation of the current therapy, plan of management at this time without any changes. The symptoms of the legionella other influenza infection has been noted over several days and the use of the antibiotic therapy at this time but would not be beneficial. Continue all other supportive plan of management as in progress. The patient will be undergoing bronchoscopy tomorrow morning. The patient ____ of the mucus impaction major airways. [place], [place] PROGRESS NOTE NAME: JULIETH VALDES UNIT #: [id number] ROOM: 520 DOCTOR: CANDIE SERRANO MD BIRTHDATE: [birth year] CANDIE LOERA MD CM:PNTRANS [phone] CANDIE ALVES MD 08/10/17 172 interface
[~2017-08-06 13:09] MED LIST changes: +PROVENTIL HFA6.7 GM INH; -PROVENTIL0.09 MG/A1 INH
[2017-08-06 13:15] VITALS: BP 130/69
[2017-08-06 13:35] LABS: BASO # 0.1 10*3/uL (0.0-0.1); BASO % 0.6 % (0.0-1.0); EOS # 0.2 10*3/uL (0.0-0.4); EOS % 1.6 % (1.0-4.0); HEMOGLOBIN 10.7 g/dl (12.0-16.0); LYMPH % 23.6 % (27.0-41.0); MEAN CELL VOLUME 76.9 fl (81.0-99.0); MEAN CORPUSCULAR HGB 24.2 pg (27.0-31.0); MEAN CORPUSCULAR HGB CONC 31.5 g/dl (33.0-37.0); MEAN PLATELET VOLUME 9.6 fl (9.6-12.3); MONO # 0.8 10*3/uL (0.1-1.0); MONO % 6.4 % (3.0-9.0); NEUT # 8.4 10*3/uL (2.3-7.9); NEUT % 65.8 % (47.0-73.0); PLATELET COUNT AUTOMATED 479 10*3/uL (130-400); RED BLOOD COUNT 4.42 10*6/uL (4.10-5.10); RED CELL DISTRI WIDTH 14.9 % (0-14.5); WHITE BLOOD COUNT 12.7 10*3/uL (4.8-10.8)
[2017-08-06 13:44] LABS: ACT PARTIAL THROMBO TIME 22.5 SECONDS (20.8-31.5); INTERNATIONAL NORM RATIO 0.9 (2.0-3.5)
[2017-08-06 13:50] LABS: ALBUMIN 4.1 gm/dl (3.1-4.5); ALKALINE PHOSPHATASE 83 U/L (45-117); BUN 20 mg/dl (7-24); CHLORIDE 99 mmol/L (98-107); CREATININE 0.86 mg/dL (0.55-1.02); LIPASE 128 U/L (73-393); POTASSIUM 3.9 mmol/L (3.5-5.1); SGOT/AST 23 IU/L (3-35); SGPT/ALT 31 U/L (12-78); SODIUM 137 mmol/L (136-145); TROPONIN I < 0.015 ng/ml (<0.045)
[2017-08-06] MEDS ORDERED: AMOXICILLIN500 M3 PO (15:57)
[2017-08-06] MEDS ORDERED: FLONASE ALLERG9.9 ML NAS (15:58)
[2017-08-06] MEDS ORDERED: AMLODIPINE BES2.5 MG PO (15:59)
[2017-08-06] MEDS ORDERED: VISTARIL50 MG PO (15:59)
[2017-08-06] MEDS ORDERED: VITAMIN D-32000 UNI1 PO (15:59)
[2017-08-06 16:50] VITALS: BP 132/60
[2017-08-06 16:53] VITALS: BP 132/60
[2017-08-06 20:00] VITALS: BP 117/73
[2017-08-07] VITALS: BP 129/73
[2017-08-07 07:25] LABS: HEMATOCRIT 30.1 % (37.0-47.0); HEMOGLOBIN 9.5 g/dl (12.0-16.0); MEAN CELL VOLUME 77.4 fl (81.0-99.0); MEAN CORPUSCULAR HGB 24.4 pg (27.0-31.0); MEAN CORPUSCULAR HGB CONC 31.6 g/dl (33.0-37.0); MEAN PLATELET VOLUME 10.2 fl (9.6-12.3); PLATELET COUNT AUTOMATED 418 10*3/uL (130-400); RED BLOOD COUNT 3.89 10*6/uL (4.10-5.10); RED CELL DISTRI WIDTH 15.1 % (0-14.5); WHITE BLOOD COUNT 12.5 10*3/uL (4.8-10.8)
[2017-08-07 07:48] LABS: PLATELET SUFFICIENCY HIGH (NORMAL); POLYCHROMASIA SLIGHT; TOTAL CELLS COUNTED 100 #CELLS
[2017-08-07 07:50] LABS: BUN 16 mg/dl (7-24); CHLORIDE 103 mmol/L (98-107); POTASSIUM 4.2 mmol/L (3.5-5.1); SODIUM 139 mmol/L (136-145)
[2017-08-07 08:00] VITALS: BP 156/80
[2017-08-07 08:01] LABS: CHOLESTEROL 244 mg/dL (<200); CREATININE 0.73 mg/dL (0.55-1.02); HDL CHOLESTEROL 49 mg/dl (40-60); LDL CHOLESTEROL 149 mg/dL (9-159); THYROID STIM HORMONE (HS) 0.409 uIU/ml (0.358-4.75); TRIGLYCERIDES 228 mg/dl (<150); VLDL CHOLESTEROL 46 mg/dL (6-40)
[2017-08-07 08:18] LABS: VITAMIN D, 25-HYDROXY 30.5 ng/mL (30-100)
[2017-08-07 12:00] VITALS: BP 95/73
[2017-08-07 16:00] VITALS: BP 120/65
[2017-08-07 16:10] LABS: MYCOPLASMA PNEUMONIAE IGG 100 U/mL (0-99); MYCOPLASMA PNEUMONIAE IGG 112 U/mL (0-99); MYCOPLASMA PNEUMONIAE IGM <770 U/mL (0-769)
[2017-08-07 19:56] VITALS: BP 138/71
[2017-08-08] VITALS: BP 127/71
[2017-08-08 06:39] LABS: HEMATOCRIT 30.2 % (37.0-47.0); HEMOGLOBIN 9.5 g/dl (12.0-16.0); MEAN CELL VOLUME 77.4 fl (81.0-99.0); MEAN CORPUSCULAR HGB 24.4 pg (27.0-31.0); MEAN CORPUSCULAR HGB CONC 31.5 g/dl (33.0-37.0); MEAN PLATELET VOLUME 9.7 fl (9.6-12.3); PLATELET COUNT AUTOMATED 473 10*3/uL (130-400); RED CELL DISTRI WIDTH 15.3 % (0-14.5); WHITE BLOOD COUNT 14.8 10*3/uL (4.8-10.8)
[2017-08-08 06:49] LABS: BUN 21 mg/dl (7-24); CHLORIDE 103 mmol/L (98-107); CREATININE 0.71 mg/dL (0.55-1.02); POTASSIUM 3.9 mmol/L (3.5-5.1); SODIUM 138 mmol/L (136-145)
[2017-08-08 07:30] LABS: OVALOCYTES FEW; PLATELET SUFFICIENCY HIGH (NORMAL); POLYCHROMASIA SLIGHT; TOTAL CELLS COUNTED 100 #CELLS
[2017-08-08 08:00] VITALS: BP 106/88
[2017-08-08 12:00] VITALS: BP 138/83
[2017-08-08 15:06] LABS: LEGIONELLA URINARY ANTIGEN Negative (Negative)
[2017-08-08 16:00] VITALS: BP 143/76
[2017-08-08 20:00] VITALS: BP 122/69
[2017-08-08 22:07] LABS: INFLUENZA A ANTIBODIES 1:16 (Neg:<1:8); PARAINFLUENZA 2 CF Negative (Neg:<1:8)
[2017-08-09] VITALS: BP 124/61
[2017-08-09 01:05] LABS: ADENOVIRUS Negative (Negative); INFLUENZA A Negative (Negative); INFLUENZA B Negative (Negative); METAPNEUMOVIRUS Negative (Negative); PARAINFLUENZA 1 Negative (Negative); PARAINFLUENZA 2 Negative (Negative); PARAINFLUENZA 3 Negative (Negative); RHINOVIRUS Negative (Negative); RSV A Negative (Negative); RSV B Negative (Negative)
[2017-08-09 08:00] VITALS: BP 164/94
[2017-08-09 12:00] VITALS: BP 123/73
[2017-08-09 16:00] VITALS: BP 145/75
[2017-08-09 20:00] VITALS: BP 152/79
[2017-08-10] VITALS: BP 144/73
[2017-08-10 06:19] LABS: HEMATOCRIT 31.7 % (37.0-47.0); HEMOGLOBIN 10.3 g/dl (12.0-16.0); MEAN CELL VOLUME 76.9 fl (81.0-99.0); MEAN CORPUSCULAR HGB CONC 32.5 g/dl (33.0-37.0); MEAN PLATELET VOLUME 9.8 fl (9.6-12.3); PLATELET COUNT AUTOMATED 564 10*3/uL (130-400); RED BLOOD COUNT 4.12 10*6/uL (4.10-5.10); RED CELL DISTRI WIDTH 14.9 % (0-14.5); WHITE BLOOD COUNT 13.2 10*3/uL (4.8-10.8)
[2017-08-10 06:44] LABS: ALBUMIN 3.7 gm/dl (3.1-4.5); BUN 29 mg/dl (7-24); CHLORIDE 98 mmol/L (98-107); SODIUM 136 mmol/L (136-145)
[2017-08-10 06:48] LABS: ALKALINE PHOSPHATASE 69 U/L (45-117); CREATININE 0.76 mg/dL (0.55-1.02); SGOT/AST 18 IU/L (3-35); SGPT/ALT 26 U/L (12-78); TOTAL PROTEIN 7.1 gm/dL (6.4-8.2)
[2017-08-10 07:35] LABS: ATYPICAL LYMPHS 1 % (0-0); MICROCYTOSIS SLIGHT; PLATELET SUFFICIENCY HIGH (NORMAL); TOTAL CELLS COUNTED 100 #CELLS
[2017-08-10 08:00] VITALS: BP 142/92
[2017-08-10 12:00] VITALS: BP 133/76
[2017-08-10 16:00] VITALS: BP 119/71
[2017-08-10 20:00] VITALS: BP 123/79
[2017-08-11] VITALS (9 sets, daily range): BP systolic 118–154; BP diastolic 62–84
[2017-08-11 06:32] LABS: HEMATOCRIT 34.3 % (37.0-47.0); HEMOGLOBIN 10.7 g/dl (12.0-16.0); MEAN CELL VOLUME 76.7 fl (81.0-99.0); MEAN CORPUSCULAR HGB 23.9 pg (27.0-31.0); MEAN CORPUSCULAR HGB CONC 31.2 g/dl (33.0-37.0); MEAN PLATELET VOLUME 9.5 fl (9.6-12.3); PLATELET COUNT AUTOMATED 669 10*3/uL (130-400); RED BLOOD COUNT 4.47 10*6/uL (4.10-5.10)
[2017-08-11 06:56] LABS: BUN 33 mg/dl (7-24); CHLORIDE 99 mmol/L (98-107); CREATININE 0.74 mg/dL (0.55-1.02); POTASSIUM 4.1 mmol/L (3.5-5.1); SODIUM 136 mmol/L (136-145)
[2017-08-11 07:16] LABS: TOTAL CELLS COUNTED 100 #CELLS
[2017-08-11 07:18] LABS: MICROCYTOSIS SLIGHT; PLATELET SUFFICIENCY HIGH (NORMAL)
[2017-08-12] VITALS: BP 128/66
[2017-08-12 07:03] LABS: HEMATOCRIT 32.3 % (37.0-47.0); HEMOGLOBIN 10.3 g/dl (12.0-16.0); MEAN CELL VOLUME 76.4 fl (81.0-99.0); MEAN CORPUSCULAR HGB 24.3 pg (27.0-31.0); MEAN CORPUSCULAR HGB CONC 31.9 g/dl (33.0-37.0); MEAN PLATELET VOLUME 9.6 fl (9.6-12.3); PLATELET COUNT AUTOMATED 528 10*3/uL (130-400); RED BLOOD COUNT 4.23 10*6/uL (4.10-5.10); WHITE BLOOD COUNT 13.7 10*3/uL (4.8-10.8)
[2017-08-12 07:38] LABS: BUN 27 mg/dl (7-24); CHLORIDE 98 mmol/L (98-107); POTASSIUM 4.3 mmol/L (3.5-5.1); SODIUM 136 mmol/L (136-145)
[2017-08-12 07:42] LABS: CREATININE 0.72 mg/dL (0.55-1.02); PHOSPHOROUS 2.8 mg/dL (2.5-4.9)
[2017-08-12 07:50] LABS: TOTAL CELLS COUNTED 100 #CELLS
[2017-08-12 07:51] LABS: MICROCYTOSIS SLIGHT; PLATELET SUFFICIENCY HIGH (NORMAL)
[2017-08-12 08:00] VITALS: BP 150/90
[2017-08-12 12:00] VITALS: BP 134/66
[2017-08-12] MEDS ORDERED: NYST SUSP PO (12:53)
[2017-08-12 17:10] LABS: ACID FAST SMEAR Negative (.); ACID FAST SPEC PROCESSING Concentration (.)
== END 2017-08-12 14:05 | disposition home or self-care (01) | DRG 871 ==
LOC: ED 13:09 → EDHOLD 15:41 → 5E 15:41
PROVIDERS: Emergency Medicine; Internal Medicine Critical Care Medicine; Internal Medicine Nephrology; Student in an Organized Health Care Education/Training Program; ADMIT Internal Medicine
PROC: 0BC88ZZ Extirpation of Matter from Left Upper Lobe Bronchus, Via Natural or Artificial Opening Endoscopic (ICD-10-PCS; principal; 2017-08-11)
PROC: 0BC38ZZ Extirpation of Matter from Right Main Bronchus, Via Natural or Artificial Opening Endoscopic (ICD-10-PCS; principal; 2017-08-11)
PROC: 0BC48ZZ Extirpation of Matter from Right Upper Lobe Bronchus, Via Natural or Artificial Opening Endoscopic (ICD-10-PCS; principal; 2017-08-11)
PROC: 0BC18ZZ Extirpation of Matter from Trachea, Via Natural or Artificial Opening Endoscopic (ICD-10-PCS; principal; 2017-08-11)
PROC: 0BC68ZZ Extirpation of Matter from Right Lower Lobe Bronchus, Via Natural or Artificial Opening Endoscopic (ICD-10-PCS; principal; 2017-08-11)
PROC: 0BC78ZZ Extirpation of Matter from Left Main Bronchus, Via Natural or Artificial Opening Endoscopic (ICD-10-PCS; principal; 2017-08-11)
PROC: 0BC58ZZ Extirpation of Matter from Right Middle Lobe Bronchus, Via Natural or Artificial Opening Endoscopic (ICD-10-PCS; principal; 2017-08-11)
PROC: 0BCB8ZZ Extirpation of Matter from Left Lower Lobe Bronchus, Via Natural or Artificial Opening Endoscopic (ICD-10-PCS; principal; 2017-08-11)
DX: A41.9 Sepsis, unspecified organism (principal); J18.9 Pneumonia, unspecified organism; J96.01 Acute respiratory failure with hypoxia; E87.2 Acidosis; J10.00 Influenza due to other identified influenza virus with unspecified type of pneumonia; J45.51 Severe persistent asthma with (acute) exacerbation; R13.10 Dysphagia, unspecified; R65.20 Severe sepsis without septic shock; I10 Essential (primary) hypertension; E66.8 Other obesity; K21.9 Gastro-esophageal reflux disease without esophagitis; F41.9 Anxiety disorder, unspecified; R73.03 Prediabetes; E78.5 Hyperlipidemia, unspecified; Z88.8 Allergy status to other drugs, medicaments and biological substances; Z88.1 Allergy status to other antibiotic agents; Z88.2 Allergy status to sulfonamides; Z79.2 Long term (current) use of antibiotics; Z79.82 Long term (current) use of aspirin; Z79.84 Long term (current) use of oral hypoglycemic drugs; Z79.899 Other long term (current) drug therapy; Z90.49 Acquired absence of other specified parts of digestive tract; Z82.49 Family history of ischemic heart disease and other diseases of the circulatory system; Z82.5 Family history of asthma and other chronic lower respiratory diseases; Z68.33 Body mass index [BMI] 33.0-33.9, adult; J20.9 Acute bronchitis, unspecified

== ENCOUNTER 2017-08-31 10:19 | Inpatient (IN) | payer MEDICARE ==
[~2017-08-31] VITALS: Ht 157.4 cm; Wt 85.0 kg
--- NOTE | ~2017-08-31 | O ---
[place], [place] OPERATIVE NOTE [id number] UN[facility] #: [id number] ROOM: 421 DOCTOR: MYA SIFUENTES,ARNOLDO BIRTHDATE: [birth year] DOS: 09/05/2017 INDICATIONS: The patient has presented with dysphagia, COPD, bronchitis, status post stabilization. Consultation has been dictated. PROCEDURE: Today's procedure part of investigation and therapy of dysphagia is panendoscopy plus scope dilation of distal esophagus. PREMEDICATION: Versed and Diprivan. SCOPE: Olympus forward-viewing gastroscope Q10 video. REPORT: After putting the patient in left lateral position and application of lubricant to the scope, the scope was introduced. Thereafter, under direct visualization, advanced through the length of esophagus without difficulty. Esophagus, cervical, thoracic distal carefully examined. Distal esophagitis noticed. Distal esophageal stricture was identified with the scope itself was minimally dilated. Hiatal hernia was noticed, which is about 2 cm. Gastric pouch was entered. Gastritis noted. Duodenal bulb, second and third part within normal limits. No biopsies obtained. The patient extubated, tolerated procedure well. IMPRESSION: Benign distal esophageal stricture, status post scope dilation, gastritis, small hiatal hernia. PLAN AND DISCUSSION: Soft diet and clinical reassessment. ARNOLDO ROQUE MD CM:OPRECORD:OPERATIVE NOTE [id number] ARNOLDO ROQUE MD 09/05/17 1814 interface
--- NOTE | ~2017-08-31 | PROC NOTE ---
[place], [place] PROCEDURE NOTE NAME: [facility] VALDES [facility] #[facility] [id number] UNIT #: [id number] ROOM: 421 DOCTOR: JANNY MACIEL BIRTHDATE: [birth year] DOS: 09/02/2017 MODIFIED BARIUM SWALLOW LOCATION: [facility], room 421, bed 1. ORDERING PHYSICIAN: Dr. Teodora Rice. RADIOLOGIST: Dr. Rivera. BACKGROUND INFORMATION: The patient is a 67-year-old female who is seen for modified barium swallow. This test was ordered to rule out aspiration. Medical history is significant for exacerbation of asthma, HTN, angina, DM, GERD, elevated cholesterol and acute on chronic respiratory failure. The patient was recently discharged from the hospital, but presented back with increased cough, shortness of breath and congestion at home. She reported having difficulty swallowing over the past couple of weeks, characterized by a feeling that foods are sticking and difficulty swallowing them at times. For today's assessment, the patient was alert and able to follow commands. She was noted to be short of breath and this increased as patient talked. She currently receives a regular diet and thin liquids. Oral peripheral examination revealed presence of natural teeth with back teeth missing. Lingual, labial, and buccal skills were within normal limits in terms of strength, range of motion, and coordination. METHODS AND MATERIALS USED FOR THE EXAM: The patient was positioned in the lateral plane and examination was viewed under fluoroscopy. The patient was presented with a variety of consistencies to assess swallowing skills including applesauce mixed with barium presented in half teaspoon amounts, barium-coated cookie and sandwich given in bite size pieces and thin liquid barium taken by cup. Thin liquid was taken with the head in neutral position and in a chin tuck position. ORAL PHASE: Unremarkable. PHARYNGEAL PHASE: The pharyngeal swallow occurred within a timely manner with all consistencies given. Laryngeal elevation and epiglottic function were reduced with thin liquid with transient penetration occurring. This occurred with both small and large sip sized amounts. When instructed to use a chin tuck maneuver, the patient was able to accurately complete this and it resulted in no penetration. There were no instances of penetration or aspiration with any other consistency. There was no residue in the pharynx post-swallow. ESOPHAGEAL PHASE: This phase of the swallow was not formally assessed during this examination. IMPRESSIONS AND RECOMMENDATIONS: Based upon assessment results, this 67-year-old patient presents with a mild pharyngeal dysphagia. The patient tolerated food items without difficulty; however, was noted to become more short of breath as the exam continued. When given thin liquid by cup, transient penetration did occur with small and large sip size amounts. When instructed to [place], [place] PROCEDURE NOTE NAME: JULIETH VALDES UNIT #: [id number] ROOM: 421 DOCTOR: JANNY MACIEL BIRTHDATE: [birth year] use a chin tuck maneuver, no penetration occurred. There was no aspiration with any consistency during this test. Recommend the patient receive a regular diet and thin liquids with use of chin tuck with all liquid presentations. Recommend use of safe swallow strategies with p.o. intake such as moistening foods to make them easier to swallow, alternating liquids and solids and eating slowly with rest breaks as needed if shortness of breath occurs. Followup therapy is recommended to ensure safe intake with diet targeting implementation of safe swallow strategies and maneuvers and performance of laryngeal strengthening exercises. Te patient and her nurse were educated on strategies and recommendations and verbalized understanding. Thank you very much for this referral. Should you have any questions regarding this patient, please contact the speech pathologist at [phone]. JANNY MACIEL CM:PROCNOTE:PROCEDURE NOTE [id number] TEODORA PARSONS
--- NOTE | ~2017-08-31 | PR ---
[place], [place] PROGRESS NOTE [facility]: [id number] UNIT #: [id number] ROOM: 421 DOCTOR: LUZ MARIA ALVES MD,CANDIE BIRTHDATE: [birth year] DOS: 09/04/2017 SUBJECTIVE: The patient was still noted with some cough, which has been gradually improving. Denies symptoms of chest pain, abdominal pain. Receiving speech therapy for the micro aspiration and dysphagia. OBJECTIVE: VITAL SIGNS: Normal temperature, respiratory rate 20, heart rate 90, blood pressure 126/77, pulse ox saturation on room air 96% saturation. HEENT: No acute change. NECK: Supple. CARDIOVASCULAR: S1, S2 audible. LUNGS: Scattered rhonchorous breathing. ABDOMEN: Soft, nontender. LABORATORY DATA: CBC: Normal WBC count and platelet count mildly elevated 477,000. BMP: BUN 28, remaining BMP was normal. IMPRESSION: 1. The patient who has been noted with gradual resolution uncomplicated severe persistent bronchial asthma. 2. Mild oropharyngeal dysphagia, silent aspiration causing recurrent pulmonary symptoms. PLAN OF TREATMENT: Physical therapy, occupation therapy as ordered will be continued. Continuation of the bronchodilators and oxygen supplementation. Continue Solu-Medrol 40 mg b.i.d. Possible discharge home in the morning depends on further improvement in the respiratory symptoms. CANDIE LOERA MD CM:PNTRANS [phone] CANDIE ALVES MD 09/04/17 1647 interface
--- NOTE | ~2017-08-31 | PR ---
[place], [place] PROGRESS NOTE NAME: JULIETH VALDES UNIT #: [id number] ROOM: 421 DOCTOR: LUZ MARIA ALVES MD,CANDIE BIRTHDATE: [birth year] DOS: 09/03/2017 SUBJECTIVE: She has been still noted coughing intermittently. The patient denies any symptoms of chest pain. She has been seen by the Speech Service because dysphagia noted with current modified barium swallow. The cultures of the sputum was noted abnormal for the MRSA with intermediate sensitivity noted tetracycline and sensitive noted to the ____ sulfate. The patient denies any symptoms of chest pain or hemoptysis. OBJECTIVE: VITAL SIGNS: Normal temperature, respiratory rate 18, heart rate 108, blood pressure 160/84-134/72. Intake was 1620/2400 mL and 780 mL. Pulse ox saturation 95% saturation recorded. HEENT: Examination shows no acute change. NECK: Supple. CARDIOVASCULAR: S1, S2 is audible. LUNGS: The patient was noted without any wheezing or crackles at the present time. Breaths are noted mildly decreased bilaterally. ABDOMEN: Soft with moderate obesity. Bowel sounds present. EXTREMITIES: Minimal edema. SKIN: No lesions or rashes. MUSCULOSKELETAL SYMPTOM: Does not show any acute deformities. ____ MRSA with intermittent sensitivity noted tetracycline, but noted sensitive to the Bactrim, Zyvox and vancomycin. The patient has been noted with allergy to the Bactrim sulfate and also tetracycline. PLAN OF TREATMENT: The patient will be started on Zyvox, which will be ordered without any side effects and the patient certainly could be discharged on that to complete the treatment. Other option is to use of intravenous therapy that might prolong her stay in the hospital. The dose of Solu-Medrol will be decreased at this time as the wheezing of the symptoms have been resolving. Continuation of the speech therapy and assessment by the Gastroenterology, for further assessment need to be made based on the progression of the illness. The Solu-Medrol dose will be decreased from 60 mg every 8 hours to 40 mg b.i.d. Zithromax and the Rocephin has been already discontinued. [place], [place] PROGRESS NOTE NAME: JULIETH VALDES UNIT #: [id number] ROOM: 421 DOCTOR: CANDIE SERRANO MD BIRTHDATE: [birth year] CANDIE LOERA MD CM:PNTRANS [phone] CANDIE ALVES MD 09/03/171999 interface
--- NOTE | ~2017-08-31 | CON ---
[place], [place] REPORT OF CONSULTATION NAME: [facility] #: [id number] UNIT #: [id number] ROOM: 421 DOCTOR: CADNIE SERRANO MD BIRTHDATE: [birth year] DOS: 08/31/2017 CONSULTATION REQUESTED BY: Hospitalist service. REASON FOR CONSULTATION: For assessment of the recurrence of the acute respiratory symptoms with exacerbation of bronchial asthma. HISTORY OF PRESENT ILLNESS: A 67-year-old white female who has been known to me. The patient has been admitted in the hospital previously and was treated. The patient required the fibrobronchoscopy on the last admission in the beginning of this month. She was discharged home and noted with complete resolution of the acute symptom with the tapering dose of prednisone and antibiotics. She presented to the hospital and started with having acute respiratory symptom, which started since last Friday, which was 3 days ago. She started with having generalized weakness and fatigue. The patient was also noted with symptoms of coughing with green sputum expectoration, tightness in the chest, shortness of breath and wheezing. She denies symptoms of hemoptysis. The patient denies any symptoms of chest symptoms. REVIEW OF SYSTEMS: CONSTITUTIONAL: Fatigue and tiredness reported per patient. Denies any fever or chills. EYES: Denies any burning, redness, or tenderness. EARS, NOSE, THROAT SYMPTOMS: Denies sore throat, hoarseness, otalgia, postnasal drainage or epistaxis. CARDIOVASCULAR: Denies anginal pain, edema or pain of the lower extremities. GASTROINTESTINAL: Short lived diarrhea which has been resolved. Denies any symptoms of nausea, vomiting, diarrhea, abdominal pain, hematemesis, melena, or hematochezia. GENITOURINARY SYMPTOMS: Denies dysuria, suprapubic pain, hematuria or flank pain. MUSCULOSKELETAL: No acute joint pain, redness, tenderness or deformities. CENTRAL NERVOUS SYSTEM: Dizziness, headache, diplopia, syncopal episode or tingling sensation of the extremities. Remaining systems were reviewed with the patient and they were noted all negative. PAST MEDICAL HISTORY: 1. Noted with last hospitalization in 08/2017. The patient was managed for the acute exacerbation of bronchial asthma with acute tracheobronchitis. 2. Past history of uncomplicated severe persistent bronchial asthma. 3. History of allergic rhinitis. 4. Anxiety disorder. 5. Essential hypertension. 6. Moderate obesity. 7. Hyperlipidemia. 8. Gastroesophageal reflux. PAST SURGICAL HISTORY: [place], [place] REPORT OF CONSULTATION NAME: [facility] #: [id number] UNIT #: [id number] ROOM: [facility] DOCTOR: CANDIE SERRANO MD BIRTHDATE: [birth year] 1. Cholecystectomy. 2. Cardiac catheterization. 3. Therapeutic bronchoscopy. SOCIAL HISTORY: The patient is , has 2 children, lives at home. Lifetime nonsmoker. There was no history of alcohol use, illicit drug use or any tobacco use. There was no acute occupation related pulmonary exposure reported. FAMILY HISTORY: The patient's mother at age 7373 years old, complications of bronchial asthma. Father at 72 years old, complications related to coronary artery disease. HOME MEDICATIONS: Noted use of Flonase, atenolol, hydrochlorothiazide, Singulair, sertraline, Dulera, multivitamin, losartan, loratadine, hydroxyzine, fenofibrate, aspirin, and Protonix. DRUG ALLERGIES: NOTED ALLERGY: 1. AVELOX. 2. SULFA DRUG. 3. IBUPROFEN. 4. TETRACYCLINE. 5. TRAZODONE. PHYSICAL EXAMINATION: GENERAL: A 67-year-old female who has been noted currently awake and alert without any acute distress. Height of 5 feet 2 inches, weight of 187 pounds with BMI 34.2. VITAL SIGNS: Shows a normal temperature, respiratory rate 18 to 20, heart rate of 96 to 102, blood pressure 145/79 to 110/69. Pulse oxygen saturation on room were recorded as 96% saturation. HEENT: Bfgf-vz-pvhpydsm obesity. Head was atraumatic. NECK: Supple. CARDIOVASCULAR SYSTEM: S1, S2 is audible. LUNGS: Moderate reduced breath sounds with expiratory wheezing without any crackles. ABDOMEN: Soft, obese, nontender. Bowel sounds present. EXTREMITIES: Without any edema, clubbing, cyanosis. SKIN: Visible skin with no lesions or rashes. MUSCULOSKELETAL: No deformities. CENTRAL NERVOUS SYSTEM: Cranial nerves 2 to 12 intact. No focal deficit. LABORATORY AND DIAGNOSTIC DATA: CMP of 08/31/2017, glucose 171, BUN and creatinine was normal, sodium 135. Influenza A and B, nasal washing antigens were negative. Lactic acid admission 3.3. CBC on admission, WBC count of 6.6, hemoglobin 9.8, hematocrit 31.0, platelet count 263,000. One view chest x-ray which was done in the Emergency Room this morning does not show an acute pulmonary infiltration. The chest x-ray were personally reviewed from the PACS images. [place], [place] REPORT OF CONSULTATION NAME: JULIETH VALDES UNIT #: [id number] ROOM: 421 DOCTOR: LUZ MARIA ALVES MD,CANDIE BIRTHDATE: [birth year] IMPRESSION: 1. Recurrence of acute exacerbation of bronchial asthma. The patient with acute bronchitis whether viral or bacterial in origin cannot be completely known. 2. History of allergic rhinitis which was also noted chronic with other medical problem. 3. Recent hospitalization and noted improvement and resolution of acute symptoms with the new acute respiratory symptoms noted at present time. 4. Moderate obesity as well. PLAN OF MANAGEMENT: Order the sputum for Gram stain and culture, respiratory viral panel. Continue IV Solu-Medrol. Antibiotic as well. Monitor other labs closely. Supportive therapy and the plan of management and care plan. Additional treatment changes need to be made based on the progression of the illness. Bronchodilator will be continued every 4 hours. DVT prophylaxis will be continued. Sliding scale insulin coverage for any hyperglycemia associated with the use of the corticosteroids. CANDIE LOERA MD CM:CONSTR:REPORT OF CONSULTATION 1532 09/01/17 0659 interface
--- NOTE | ~2017-08-31 | PR ---
[place], [place] PROGRESS NOTE NAME: JULIETH VALDES [facility] #: [id number] UNIT #: [id number] ROOM: 421 DOCTOR: LUZ MARIA ALVES MD,CANDIE BIRTHDATE: [birth year] DOS: 09/06/2017 SUBJECTIVE: The patient has been noted comfortable, underwent the upper endoscopy by Dr. Carter, benign distal esophageal stricture was noted, which has been dilated successfully. The patient was also noted with evidence of gastritis and hiatal hernia. The respiratory garsia, the patient continued to do well with reduction in the shortness of breath, cough, wheezing and hoarseness. OBJECTIVE: VITAL SIGNS: For the patient which has been recorded showed normal temperature, respiratory rate of 20, heart rate 88, blood pressure 134/76 this morning. Pulse oxygen saturation on 4 liters 98% saturation. HEENT: No acute change. NECK: Supple. CARDIOVASCULAR: S1, S2 audible. LUNGS: The patient without any crackles. Scattered wheezing in the lungs. ABDOMEN: Soft, nontender. EXTREMITIES: Without any acute edema. IMPRESSION: 1. The patient with the respiratory viral infection with acute exacerbation of bronchial asthma and acute MRSA bronchitis treated well with the use of the oral antibiotics as Zyvox. 2. Benign esophageal stricture, dysphagia which is improving. 3. Microaspiration treated with the speech therapy. PLAN OF TREATMENT: Discharge the patient with tapering dose of prednisone, completion of the 10 days course of the oral Zyvox. No side effects related to the Zyvox was currently seen. Other supportive plan of management as determined for the patient on discharge by the primary care attending. The discharge planning was discussed with the patient's primary care attending. CANDIE LOERA MD CM:PNTRANS 1357 CANDIE ALVES MD 09/07/1730 interface
--- NOTE | ~2017-08-31 | PR ---
[place], [place] PROGRESS NOTE NAME: JULIETH VALDES UNIT #: [id number] ROOM: 421 DOCTOR: CANDIE SERRANO MD BIRTHDATE: [birth year] DOS: 09/05/2017 SUBJECTIVE: She has been still noted with some hoarseness, but is improving. Respiratory symptoms have been gradually resolving. The shortness of breath has improved significantly. The coughing has been decreased progressively. The patient started on Zyvox on this hospitalization, which was well tolerated without any side effects. She has been also planned for the EGD to be done today by Dr. Carter. OBJECTIVE: VITAL SIGNS: Normal temperature, respiratory rate 14, heart rate of 72, blood pressure of 128/73. HEENT: Head was atraumatic. Eyes, nonicterus. NECK: Supple. CARDIOVASCULAR: S1, S2 is audible. LUNGS:. The patient was noted without any crackles, rhonchi, or wheezing. The lungs are noted completely clear. ABDOMEN: Noted soft with moderate obesity. EXTREMITIES: The patient was noted without any acute edema. LABORATORY DATA: Respiratory viral panel was noted positive for RSV-B virus. IMPRESSION: 1. The patient with acute tracheobronchitis with viral infection and superimposed acute bacterial infection with methicillin-resistant Staphylococcus aureus. 2. Recurrent micro aspiration in the patient was also noted. Current workup remains in progress. PLAN OF TREATMENT: Proceed with the GI workup for this patient as noted in progress. Other additional treatment changes need to be made for this patient based on the progression of the illness. Usual care and other plan of treatment to be continued as previously. Outpatient followup for the patient was recommended in about 2-3 weeks after discharge. [place], [place] PROGRESS NOTE NAME: JULIETH VALDES UNIT #: [id number] ROOM: 421 DOCTOR: CANDIE SERRANO MD BIRTHDATE: [birth year] CANDIE LOERA MD CM:PNTRANS 1541 [id number] CANDIE ALVES MD 09/06/17227 interface
--- NOTE | ~2017-08-31 | PR ---
[place], [place] PROGRESS NOTE NAME: JULIETH VALDES UNIT #: [id number] ROOM: 421 DOCTOR: CANDIE SERRANO MD BIRTHDATE: [birth year] DOS: 09/01/2017 SUBJECTIVE: She has been noted comfortable at this time, resting reported reduction in symptoms of shortness of breath. Denies symptoms of chest pain. Cough has been noted intermittently with small sputum expectoration. OBJECTIVE: VITAL SIGNS: Blood pressure was normal, respiratory rate of 24, heart rate of 113, blood pressure 123/64. Pulse oxygen saturation recorded on 2 liters 99% saturation. HEENT: No acute change. NECK: Supple. CARDIOVASCULAR: S1, S2 audible. LUNGS: Noted moderate decreased breath sounds with mild to moderate expiratory wheezing without any crackles. ABDOMEN: Soft, nontender. LABORATORY DATA: Culture of the sputum, the patient was pending. The Gram stain many white blood cells, moderate epithelial cells, moderate gram-positive cocci in pairs and clusters with few gram-negative bacilli for today. BMP: Glucose 283, otherwise normal. IMPRESSION: 1. The patient who has been currently noted with uuaos-ae-jjacanw severe hypercapnic and hypoxic respiratory failure with acute exacerbation of chronic obstructive pulmonary disease and acute bronchitis. 2. Tachycardia secondary to exacerbation of chronic obstructive pulmonary disease. PLAN OF TREATMENT: No changes in the plan of therapy for the patient at this time. Continue the patient's current therapy, plan of management. The patient was recommended about ambulation with use of oxygen supplementation to assess the improvement in the respiratory status. She was also noted steroid-induced hyperglycemia. The patient treated with sliding scale insulin coverage. [place], [place] PROGRESS NOTE NAME: JULIETH VALDES UNIT #: [id number] ROOM: 421 DOCTOR: CANDIE SERRANO MD BIRTHDATE: [birth year] CANDIE LOERA MD CM:PNTRANS 1432 [id number] CANDIE ALVES MD 09/01/17 1522 interface
--- NOTE | ~2017-08-31 | PR ---
[place], [place] PROGRESS NOTE NAME: JULIETH VALDES UNIT #: [id number] ROOM: 421 DOCTOR: CANDIE SERRANO MD BIRTHDATE: [birth year] DOS: 09/02/2017 SUBJECTIVE: The patient was noted at this time, still symptoms of dysphagia. Denies symptoms of chest pain, abdominal pain. Denies symptoms of hemoptysis. The cough has been noted intermittently. OBJECTIVE: VITAL SIGNS: Normal temperature, respiratory rate of 18-20, heart rate 96-98, blood pressure 125/58 - 149/75. The pulse oxygen saturation recorded on 2 L nasal cannula 98% saturation. HEENT: Examination shows no acute change. NECK: Supple. CARDIOVASCULAR: S1, S2 audible. LUNGS: Shows scattered wheezing in the lungs were noted bilaterally. ABDOMEN: Soft, nontender. EXTREMITIES: The patient was noted without any acute edema. SKIN: Visible skin with no lesions or rashes. MUSCULOSKELETAL: No deformities. LABORATORY DATA: Culture of the blood from 08/31/2017 no bacterial growth. Culture of the sputum were noted normal stevan at the present time. The Gram stain of yesterday, many white blood cells, moderate epithelial cells, moderate gram-positive cocci in pairs and clusters with few gram-negative bacilli. CBC: Hemoglobin 8.8, hemoglobin 7.9, platelet count 296,000. IMPRESSION: The patient has a CT of the chest that was ordered by the primary care attending of this patient yesterday was reviewed. There was no evidence of pulmonary embolism. Lungs were noted clear. IMPRESSION: 1. Recurrent aspiration was suspected ____ related to current dysphagia, possible esophageal stricture other etiologies remains in consideration with current oropharyngeal dysphagia as well. 2. Moderate obesity. 3. Acute exacerbation of uncomplicated severe persistent bronchial asthma with recurrence. PLAN OF MANAGEMENT: GI consultation recommended. The patient had been planned for modified barium swallow to be done today as well. In the meantime, other supportive therapy, plan of management. Continue as in progress. No changes in the antibiotics, bronchodilators to be continued. Monitor results of the sputum culture. [place], [place] PROGRESS NOTE NAME: JULIETH VALDES UNIT #: [id number] ROOM: 421 DOCTOR: CANDIE SERRANO MD BIRTHDATE: [birth year] CANDIE LOERA MD CM:PNTRANS 1247 [id number] CANDIE ALVES MD 09/02/17 1650 interface
[~2017-08-31 10:19] MED LIST changes: +AMLODIPINE BES2.5 MG PO; +AMOXICILLIN500 M3 PO; +FLONASE ALLERG9.9 ML NAS; +NYST SUSP PO; +VISTARIL50 MG PO; +VITAMIN D-32000 UNI1 PO
[2017-08-31 10:29] VITALS: BP 145/79
[2017-08-31 10:51] LABS: BASO % 0.3 % (0.0-1.0); EOS % 0.3 % (1.0-4.0); HEMOGLOBIN 9.8 g/dl (12.0-16.0); LYMPH % 14.9 % (27.0-41.0); MEAN CELL VOLUME 77.1 fl (81.0-99.0); MEAN CORPUSCULAR HGB 24.4 pg (27.0-31.0); MEAN CORPUSCULAR HGB CONC 31.6 g/dl (33.0-37.0); MEAN PLATELET VOLUME 9.4 fl (9.6-12.3); MONO # 0.3 10*3/uL (0.1-1.0); MONO % 4.1 % (3.0-9.0); NEUT # 5.2 10*3/uL (2.3-7.9); NEUT % 79.6 % (47.0-73.0); PLATELET COUNT AUTOMATED 363 10*3/uL (130-400); RED BLOOD COUNT 4.02 10*6/uL (4.10-5.10); WHITE BLOOD COUNT 6.6 10*3/uL (4.8-10.8)
[2017-08-31 11:10] LABS: ALKALINE PHOSPHATASE 71 U/L (45-117); BUN 22 mg/dl (7-24); CHLORIDE 97 mmol/L (98-107); CREATININE 0.85 mg/dL (0.55-1.02); POTASSIUM 4.1 mmol/L (3.5-5.1); SGOT/AST 21 IU/L (3-35); SGPT/ALT 38 U/L (12-78); SODIUM 135 mmol/L (136-145); TOTAL PROTEIN 7.7 gm/dL (6.4-8.2)
[2017-08-31 11:11] LABS: TROPONIN I < 0.015 ng/ml (<0.045)
[2017-08-31 12:40] VITALS: BP 111/58
[2017-08-31 13:18] VITALS: BP 110/69
[2017-08-31 13:20] VITALS: BP 110/69
[2017-08-31 16:00] VITALS: BP 98/55
[2017-08-31 20:00] VITALS: BP 110/66
[2017-09-01] VITALS: BP 118/67
[2017-09-01 06:29] LABS: BUN 16 mg/dl (7-24); CHLORIDE 104 mmol/L (98-107); CREATININE 0.75 mg/dL (0.55-1.02); PHOSPHOROUS 2.8 mg/dL (2.5-4.9); SODIUM 140 mmol/L (136-145)
[2017-09-01 06:35] LABS: BASO % 0.1 % (0.0-1.0); HEMATOCRIT 26.9 % (37.0-47.0); HEMOGLOBIN 8.5 g/dl (12.0-16.0); LYMPH # 0.9 10*3/uL (1.3-4.4); MEAN CELL VOLUME 78.7 fl (81.0-99.0); MEAN CORPUSCULAR HGB 24.9 pg (27.0-31.0); MEAN CORPUSCULAR HGB CONC 31.6 g/dl (33.0-37.0); MEAN PLATELET VOLUME 9.6 fl (9.6-12.3); MONO # 0.5 10*3/uL (0.1-1.0); MONO % 5.4 % (3.0-9.0); NEUT # 7.2 10*3/uL (2.3-7.9); NEUT % 83.4 % (47.0-73.0); PLATELET COUNT AUTOMATED 356 10*3/uL (130-400); RED BLOOD COUNT 3.42 10*6/uL (4.10-5.10); RED CELL DISTRI WIDTH 15.5 % (0-14.5); WHITE BLOOD COUNT 8.6 10*3/uL (4.8-10.8)
[2017-09-01 08:00] VITALS: BP 122/68
[2017-09-01 12:00] VITALS: BP 123/64
[2017-09-01 16:00] VITALS: BP 120/74
[2017-09-01 20:00] VITALS: BP 134/63
[2017-09-02] VITALS: BP 149/75
[2017-09-02 06:40] LABS: BASO % 0.1 % (0.0-1.0); HEMATOCRIT 27.9 % (37.0-47.0); HEMOGLOBIN 8.8 g/dl (12.0-16.0); LYMPH # 1.5 10*3/uL (1.3-4.4); LYMPH % 15.5 % (27.0-41.0); MEAN CELL VOLUME 79.3 fl (81.0-99.0); MEAN CORPUSCULAR HGB CONC 31.5 g/dl (33.0-37.0); MEAN PLATELET VOLUME 9.4 fl (9.6-12.3); MONO # 0.6 10*3/uL (0.1-1.0); MONO % 5.9 % (3.0-9.0); NEUT # 7.4 10*3/uL (2.3-7.9); NEUT % 76.4 % (47.0-73.0); PLATELET COUNT AUTOMATED 396 10*3/uL (130-400); RED BLOOD COUNT 3.52 10*6/uL (4.10-5.10); RED CELL DISTRI WIDTH 15.7 % (0-14.5); WHITE BLOOD COUNT 9.7 10*3/uL (4.8-10.8)
[2017-09-02 08:00] VITALS: BP 125/58
[2017-09-02 12:00] VITALS: BP 133/64
[2017-09-02 16:00] VITALS: BP 133/75
[2017-09-02 20:00] VITALS: BP 96/69
[2017-09-03] VITALS: BP 134/72
[2017-09-03 08:00] VITALS: BP 160/84
[2017-09-03 12:00] VITALS: BP 152/75
[2017-09-03 16:00] VITALS: BP 137/73
[2017-09-03 20:00] VITALS: BP 107/61
[2017-09-04] VITALS: BP 153/85
[2017-09-04 07:33] LABS: HEMATOCRIT 30.7 % (37.0-47.0); HEMOGLOBIN 9.9 g/dl (12.0-16.0); MEAN CELL VOLUME 77.5 fl (81.0-99.0); MEAN CORPUSCULAR HGB CONC 32.2 g/dl (33.0-37.0); MEAN PLATELET VOLUME 9.1 fl (9.6-12.3); PLATELET COUNT AUTOMATED 477 10*3/uL (130-400); RED BLOOD COUNT 3.96 10*6/uL (4.10-5.10); RED CELL DISTRI WIDTH 14.9 % (0-14.5); WHITE BLOOD COUNT 9.9 10*3/uL (4.8-10.8)
[2017-09-04 07:58] LABS: BUN 28 mg/dl (7-24); CHLORIDE 99 mmol/L (98-107); CREATININE 0.77 mg/dL (0.55-1.02); POTASSIUM 3.7 mmol/L (3.5-5.1); SODIUM 138 mmol/L (136-145)
[2017-09-04 08:00] VITALS: BP 130/60
[2017-09-04 08:00] LABS: ATYPICAL LYMPHS 4 % (0-0); MICROCYTOSIS SLIGHT; PLATELET SUFFICIENCY HIGH (NORMAL); TOTAL CELLS COUNTED 100 #CELLS
[2017-09-04 12:00] VITALS: BP 126/77; BP 126/87
[2017-09-04 16:00] VITALS: BP 124/80
[2017-09-04 20:00] VITALS: BP 162/98
[2017-09-05] VITALS (9 sets, daily range): BP systolic 106–141; BP diastolic 60–86
[2017-09-05 00:04] LABS: ADENOVIRUS Negative (Negative); INFLUENZA A Negative (Negative); INFLUENZA B Negative (Negative); METAPNEUMOVIRUS Negative (Negative); PARAINFLUENZA 1 Negative (Negative); PARAINFLUENZA 2 Negative (Negative); PARAINFLUENZA 3 Negative (Negative); RHINOVIRUS Negative (Negative); RSV A Negative (Negative); RSV B Positive (Negative)
[2017-09-05] MEDS ORDERED: LINEZOLID600 MG PO (09:44)
[2017-09-05] MEDS ORDERED: PREDNISONE10 MG PO (09:46)
[2017-09-05] MEDS ORDERED: Vitamin D PO (09:46)
[2017-09-06] VITALS: BP 114/60
[2017-09-06 08:00] VITALS: BP 134/76
[2017-09-06 08:20] VITALS: BP 120/80
[2017-09-06 09:48] LABS: HEMATOCRIT 32.9 % (37.0-47.0); HEMOGLOBIN 10.5 g/dl (12.0-16.0)
== END 2017-09-06 11:50 | disposition home or self-care (01) | DRG 871 ==
LOC: ED 10:19 → 4E 12:32 → EDHOLD 12:32 → 4E 12:54
PROVIDERS: Family Medicine; Internal Medicine; Nurse Practitioner Family
PROC: BD11YZZ Fluoroscopy of Esophagus using Other Contrast (ICD-10-PCS; principal; 2017-09-02)
PROC: 0D738ZZ Dilation of Lower Esophagus, Via Natural or Artificial Opening Endoscopic (ICD-10-PCS; 2017-09-05)
DX: A41.9 Sepsis, unspecified organism (principal); J96.22 Acute and chronic respiratory failure with hypercapnia; J96.21 Acute and chronic respiratory failure with hypoxia; E87.8 Other disorders of electrolyte and fluid balance, not elsewhere classified; J44.0 Chronic obstructive pulmonary disease with (acute) lower respiratory infection; E87.1 Hypo-osmolality and hyponatremia; I27.20 Pulmonary hypertension, unspecified; J45.51 Severe persistent asthma with (acute) exacerbation; J44.1 Chronic obstructive pulmonary disease with (acute) exacerbation; K44.9 Diaphragmatic hernia without obstruction or gangrene; K21.0 Gastro-esophageal reflux disease with esophagitis; K29.70 Gastritis, unspecified, without bleeding; E78.2 Mixed hyperlipidemia; R65.20 Severe sepsis without septic shock; I10 Essential (primary) hypertension; J20.9 Acute bronchitis, unspecified; R13.12 Dysphagia, oropharyngeal phase; R73.03 Prediabetes; F41.9 Anxiety disorder, unspecified; D50.9 Iron deficiency anemia, unspecified; R73.9 Hyperglycemia, unspecified; K22.2 Esophageal obstruction; B34.9 Viral infection, unspecified; B95.62 Methicillin resistant Staphylococcus aureus infection as the cause of diseases classified elsewhere; E66.9 Obesity, unspecified; Z68.34 Body mass index [BMI] 34.0-34.9, adult; Z88.6 Allergy status to analgesic agent; Z88.1 Allergy status to other antibiotic agents; Z88.2 Allergy status to sulfonamides; Z88.8 Allergy status to other drugs, medicaments and biological substances; Z79.82 Long term (current) use of aspirin; Z79.899 Other long term (current) drug therapy; Z90.49 Acquired absence of other specified parts of digestive tract; Z82.49 Family history of ischemic heart disease and other diseases of the circulatory system; Z82.5 Family history of asthma and other chronic lower respiratory diseases

== ENCOUNTER → 2017-12-16 | Outpatient (CLI) | payer MEDICARE ==
[~2017-12-16] MED LIST changes: +Vitamin D PO
== END | disposition home or self-care (01) ==
LOC: MAMMO 15:27
DX: Z12.31 Encounter for screening mammogram for malignant neoplasm of breast (principal)

== ENCOUNTER → 2018-01-14 | Day surgery (SDC) | payer MEDICARE ==
[~2018-01-14] VITALS: Ht 157.4 cm; Wt 84.8 kg
--- NOTE | ~2018-01-14 | O ---
[place], [place] OPERATIVE NOTE [id number] #: [id number] ROOM: DOCTOR: ARNOLDO ROQUE MD BIRTHDATE: [birth year] DOS: 01/14/2018 HISTORY OF PRESENT ILLNESS: A 67-year-old patient who is presenting for colon screening, family history of colonic carcinoma in brother at age 60. PAST MEDICAL HISTORY: Hypertension, anxiety, asthma. FAMILY HISTORY: Brother with colonic carcinoma. PAST SURGICAL HISTORY: Ventral hernia and cholecystectomy. SOCIAL HISTORY: Nonsmoker, nonalcohol consumer. PROCEDURE: Today's procedure part of investigation is colonoscopy. PREMEDICATION: Propofol. SCOPE: Olympus folding colonoscope 10L video. REPORT: After putting the patient in left lateral position and application of lubricant to the scope, the scope was introduced; thereafter, under direct visualization, advanced through the length of colon without difficulty. Colon mucosa and vascularity carefully examined. Base of cecum explored, appendiceal orifice identified. Ileocecal valve was defined. Diverticulosis in scattered form was identified. The patient was gradually extubated from ascending, transverse, descending colon, and tolerated the procedure well. IMPRESSION: Diverticulosis, otherwise normal colonoscopic examination. PLAN: High fiber fruit diet. ACTIVITY: Ad maria isabel. Continuation with gastritis management with PPI, follow up routinely with you in office, p.r.n. visit with us in GI Clinic. [place], [place] OPERATIVE NOTE [facility] [id number] UNIT #: [id number] ROOM: DOCTOR: ARNOLDO ROQUE MD BIRTHDATE: [birth year] ARNOLDO ROQUE MD CM:OPRECORD:OPERATIVE NOTE 1000 [id number] DB MALIK MD 01/14/18 1252 interface
[2018-01-14 09:05] VITALS: BP 138/56
[2018-01-14 09:57] VITALS: BP 136/70
[2018-01-14 10:12] VITALS: BP 130/68
[2018-01-14 10:27] VITALS: BP 140/74
== END | disposition home or self-care (01) ==
LOC: SDC 01-09 11:00
DX: Z12.11 Encounter for screening for malignant neoplasm of colon (principal); K57.30 Diverticulosis of large intestine without perforation or abscess without bleeding; J45.909 Unspecified asthma, uncomplicated; E78.00 Pure hypercholesterolemia, unspecified; K21.9 Gastro-esophageal reflux disease without esophagitis; F41.9 Anxiety disorder, unspecified; Z80.0 Family history of malignant neoplasm of digestive organs; Z90.49 Acquired absence of other specified parts of digestive tract; Z98.890 Other specified postprocedural states; Z88.2 Allergy status to sulfonamides; Z88.8 Allergy status to other drugs, medicaments and biological substances; Z79.899 Other long term (current) drug therapy; Z82.49 Family history of ischemic heart disease and other diseases of the circulatory system
CPT/HCPCS: 00812; G0105

== ENCOUNTER 2018-07-12 10:52 | Emergency (ER) | payer MEDICARE ==
[~2018-07-12] VITALS: Ht 157.4 cm; Wt 81.6 kg
--- NOTE | ~2018-07-12 | EKG ---
[place], [place] ELECTROCARDIOGRAM REPORT NAME: JULIETH VALDES UNIT #: [id number] ROOM: DOCTOR: EPIPHANY DRAFT REPORT BIRTHDATE: [birth year] [facility] Test Date: 2018-07-12 Test Time: 11:26:35 Pat Name: JULIETH VALDES Department: Room: Gender: F Tree Cutter: : 1950 Requested By: ARMANDO BLANDON Order Number: [id number] Reading MD: Rios Champion MD Measurements Intervals [place] Rate: 94 P: 61 [place]: 192 QRS: -27 QRSD: 101 T: 65 QT: 355 QTc: 444 Interpretive Statements Sinus rhythm Poor precordial R-wave progression Probable left ventricular hypertrophy Electronically Signed On 07-13-2018 9:47:52 PST by Rios Champion MD CM:EKGRPT:ELECTROCARDIOGRAM REPORT [id number] ARMANDO TEAGUE DRAFT REPORT ARMANDO BLANDON M.D.
[2018-07-12 10:56] VITALS: BP 142/89
[2018-07-12] MEDS ORDERED: Ipratropium Brom3 ML INH (13:02)
[2018-07-12] MEDS ORDERED: PREDNISONE20 M1 PO (13:05)
[2018-07-12] MEDS ORDERED: LEVOFLOXACIN500 MG PO (13:05)
== END 2018-07-12 13:40 | disposition home or self-care (01) ==
LOC: ED 10:52
DX: J44.1 Chronic obstructive pulmonary disease with (acute) exacerbation (principal); I10 Essential (primary) hypertension; K21.9 Gastro-esophageal reflux disease without esophagitis; E66.9 Obesity, unspecified; Z88.1 Allergy status to other antibiotic agents; Z88.2 Allergy status to sulfonamides; Z88.8 Allergy status to other drugs, medicaments and biological substances; Z79.82 Long term (current) use of aspirin; Z79.84 Long term (current) use of oral hypoglycemic drugs; Z79.899 Other long term (current) drug therapy; Z68.30 Body mass index [BMI] 30.0-30.9, adult; Z90.49 Acquired absence of other specified parts of digestive tract

== ENCOUNTER 2018-10-06 12:05 | Emergency (ER) | payer MEDICARE ==
[~2018-10-06] VITALS: Ht 157.4 cm; Wt 83.9 kg
[~2018-10-06 12:05] MED LIST changes: +Ipratropium Brom3 ML INH; +LEVOFLOXACIN500 MG PO; +PREDNISONE20 M1 PO
[2018-10-06 12:51] LABS: HEMATOCRIT 32.7 % (37.0-47.0); HEMOGLOBIN 10.3 g/dl (12.0-16.0); MEAN CORPUSCULAR HGB 23.6 pg (27.0-31.0); MEAN CORPUSCULAR HGB CONC 31.5 g/dl (33.0-37.0); MEAN PLATELET VOLUME 9.1 fl (9.6-12.3); PLATELET COUNT AUTOMATED 443 10*3/uL (130-400); RED BLOOD COUNT 4.36 10*6/uL (4.10-5.10); RED CELL DISTRI WIDTH 15.5 % (0-14.5); WHITE BLOOD COUNT 11.5 10*3/uL (4.8-10.8)
[2018-10-06 13:07] LABS: ALBUMIN 3.7 gm/dl (3.1-4.5); ALKALINE PHOSPHATASE 126 U/L (45-117); BUN 21 mg/dl (7-24); CHLORIDE 103 mmol/L (98-107); CREATININE 0.85 mg/dL (0.55-1.02); SGOT/AST 32 IU/L (3-35); SGPT/ALT 38 U/L (12-78); SODIUM 137 mmol/L (136-145); TOTAL PROTEIN 7.7 gm/dL (6.4-8.2)
[2018-10-06 13:15] LABS: MICROCYTOSIS SLIGHT; PLATELET SUFFICIENCY HIGH (NORMAL); TOTAL CELLS COUNTED 100 #CELLS
[2018-10-06 13:42] VITALS: BP 142/78
[2018-10-06] MEDS ORDERED: AUGMENTIN 875875 MG PO (14:08)
[2018-10-06] MEDS ORDERED: PREDNISONE50 MG PO (14:08)
== END 2018-10-06 14:18 | disposition home or self-care (01) ==
LOC: ED 12:05
PROVIDERS: Nurse Practitioner Family
DX: J20.9 Acute bronchitis, unspecified (principal); Z88.2 Allergy status to sulfonamides; Z88.1 Allergy status to other antibiotic agents; Z88.6 Allergy status to analgesic agent; Z88.8 Allergy status to other drugs, medicaments and biological substances; Z79.899 Other long term (current) drug therapy; Z79.82 Long term (current) use of aspirin

== ENCOUNTER 2019-01-16 12:47 | Emergency (ER) | payer MEDICARE ==
[~2019-01-16] VITALS: Ht 157.4 cm; Wt 84.8 kg
--- NOTE | ~2019-01-16 | EKG ---
[place], [place] ELECTROCARDIOGRAM REPORT NAME: JULIETH VALDES UNIT #: [id number] ROOM: DOCTOR: EPIPHANY DRAFT REPORT BIRTHDATE: [birth year] [facility] Test Date: 2019-01-16 Test Time: 14:53:02 Pat Name: JULIETH VALDES Department: ER Room: Gender: F Contracting Engineer: : 1950 Requested By: LJ PALOMO Order Number: [id number] Reading MD: Delfino Merino MD Measurements Intervals [place] Rate: 75 P: 10 CO: 179 QRS: -31 QRSD: 108 T: 75 QT: 379 QTc: 424 Interpretive Statements Sinus rhythm LVH with secondary repolarization abnormality Anterior Q waves, possibly due to LVH Compared to ECG 07/12/2018 11:26:35 Early repolarization now present Q waves now present Electronically Signed On 01-20-2019 6:13:55 PDT by Delfino Merino MD CM:EKGRPT:ELECTROCARDIOGRAM REPORT [id number] LJ PALOMO EPIPHANY DRAFT REPORT LJ PALOMO
[~2019-01-16 12:47] MED LIST changes: +AUGMENTIN 875875 MG PO; +PREDNISONE50 MG PO
[2019-01-16 12:51] VITALS: BP 151/80
[2019-01-16 14:08] LABS: BASO # 0.1 10*3/uL (0.0-0.1); BASO % 0.5 % (0.0-1.0); EOS # 0.1 10*3/uL (0.0-0.4); EOS % 0.7 % (1.0-4.0); HEMATOCRIT 33.9 % (37.0-47.0); LYMPH % 27.1 % (27.0-41.0); MEAN CELL VOLUME 76.4 fl (81.0-99.0); MEAN CORPUSCULAR HGB 24.8 pg (27.0-31.0); MEAN CORPUSCULAR HGB CONC 32.4 g/dl (33.0-37.0); MEAN PLATELET VOLUME 10.1 fl (9.6-12.3); MONO # 0.8 10*3/uL (0.1-1.0); MONO % 6.8 % (3.0-9.0); NEUT # 7.1 10*3/uL (2.3-7.9); NEUT % 64.3 % (47.0-73.0); PLATELET COUNT AUTOMATED 358 10*3/uL (130-400); RED BLOOD COUNT 4.44 10*6/uL (4.10-5.10); RED CELL DISTRI WIDTH 14.8 % (0-14.5); WHITE BLOOD COUNT 11.1 10*3/uL (4.8-10.8)
[2019-01-16 14:24] LABS: ALBUMIN 3.9 gm/dl (3.1-4.5); ALKALINE PHOSPHATASE 94 U/L (45-117); BUN 16 mg/dl (7-24); CHLORIDE 101 mmol/L (98-107); CREATININE 0.71 mg/dL (0.55-1.02); POTASSIUM 3.8 mmol/L (3.5-5.1); SGOT/AST 25 IU/L (3-35); SGPT/ALT 30 U/L (12-78); SODIUM 138 mmol/L (136-145); TOTAL PROTEIN 7.6 gm/dL (6.4-8.2)
[2019-01-16 14:25] LABS: TROPONIN I < 0.015 ng/ml (<0.045)
[2019-01-16] MEDS ORDERED: AUGMENTIN 875-875 MG PO (16:12)
[2019-01-16] MEDS ORDERED: TESSALON PERLE100 M1 PO (16:12)
== END 2019-01-16 16:21 | disposition home or self-care (01) ==
LOC: ED 12:47
PROVIDERS: Nurse Practitioner Family
DX: J18.9 Pneumonia, unspecified organism (principal); J44.9 Chronic obstructive pulmonary disease, unspecified; K21.9 Gastro-esophageal reflux disease without esophagitis; I10 Essential (primary) hypertension; E66.9 Obesity, unspecified; E78.5 Hyperlipidemia, unspecified; Z88.1 Allergy status to other antibiotic agents; Z88.2 Allergy status to sulfonamides; Z88.6 Allergy status to analgesic agent; Z88.8 Allergy status to other drugs, medicaments and biological substances; Z79.899 Other long term (current) drug therapy; Z79.82 Long term (current) use of aspirin; Z68.34 Body mass index [BMI] 34.0-34.9, adult

== ENCOUNTER → 2019-06-08 | Outpatient (CLI) | payer MEDICARE ==
[~2019-06-08] MED LIST changes: +AUGMENTIN 875-875 MG PO; +TESSALON PERLE100 M1 PO
[2019-06-09 16:08] LABS: IGG SUBCLASS 1 361 mg/dL (248-810); IGG SUBCLASS 2 273 mg/dL (130-555); IGG SUBCLASS 3 30 mg/dL (15-102); IGG SUBCLASS 4 25 mg/dL (2-96); IMMUNOGLOBULIN G, QNT 765 mg/dL (700-1600)
[2019-06-12 00:08] LABS: IMMUNOGLOBULIN IgE 002170 6 IU/mL (6-495)
== END | disposition home or self-care (01) ==
LOC: LAB 13:11
PROVIDERS: Internal Medicine Critical Care Medicine
DX: J84.9 Interstitial pulmonary disease, unspecified (principal)

== ENCOUNTER 2020-01-24 16:19 | Emergency (ER) | payer MEDICARE ==
[~2020-01-24] VITALS: Ht 157.4 cm; Wt 83.9 kg
[2020-01-24 16:54] LABS: BASO % 0.5 % (0.0-1.0); EOS # 0.1 10*3/uL (0.0-0.4); EOS % 0.9 % (1.0-4.0); HEMATOCRIT 35.2 % (37.0-47.0); LYMPH # 1.2 10*3/uL (1.3-4.4); LYMPH % 15.8 % (27.0-41.0); MEAN CELL VOLUME 80.4 fl (81.0-99.0); MEAN CORPUSCULAR HGB CONC 32.4 g/dl (33.0-37.0); MEAN PLATELET VOLUME 9.9 fl (9.6-12.3); MONO # 0.3 10*3/uL (0.1-1.0); NEUT # 6.1 10*3/uL (2.3-7.9); NEUT % 78.2 % (47.0-73.0); PLATELET COUNT AUTOMATED 270 10*3/uL (130-400); RED BLOOD COUNT 4.38 10*6/uL (4.10-5.10); RED CELL DISTRI WIDTH 14.5 % (0-14.5); WHITE BLOOD COUNT 7.8 10*3/uL (4.8-10.8)
[2020-01-24 17:05] LABS: ACT PARTIAL THROMBO TIME 26.8 SECONDS (20.0-32.1); INTERNATIONAL NORM RATIO 0.9 (2.0-3.5)
[2020-01-24 17:09] LABS: ALBUMIN 3.7 gm/dl (3.1-4.5); ALKALINE PHOSPHATASE 92 U/L (45-117); BUN 10 mg/dl (7-24); CHLORIDE 104 mmol/L (98-107); CREATININE 0.78 mg/dL (0.55-1.02); LIPASE 93 U/L (73-393); POTASSIUM 3.3 mmol/L (3.5-5.1); SGOT/AST 20 IU/L (3-35); SGPT/ALT 32 U/L (12-78); SODIUM 139 mmol/L (136-145); TOTAL PROTEIN 7.3 gm/dL (6.4-8.2)
[2020-01-24 17:10] LABS: TROPONIN I < 0.015 ng/ml (<0.045)
[2020-01-24] MEDS ORDERED: PREDNISONE20 M1 PO (18:49)
[2020-01-24 19:08] VITALS: BP 140/87
== END 2020-01-24 19:34 | disposition home or self-care (01) ==
LOC: ED 16:19
PROVIDERS: Nurse Practitioner Family
DX: R09.89 Other specified symptoms and signs involving the circulatory and respiratory systems (principal); R05 Cough; Z88.8 Allergy status to other drugs, medicaments and biological substances; Z88.2 Allergy status to sulfonamides; Z79.899 Other long term (current) drug therapy; Z79.2 Long term (current) use of antibiotics; Z79.84 Long term (current) use of oral hypoglycemic drugs; Z90.49 Acquired absence of other specified parts of digestive tract

== ENCOUNTER → 2020-05-11 | Outpatient (CLI) | payer MEDICARE, OTHER | END | disposition home or self-care (01) | LOC: MAMMO 12:45 | PROVIDERS: ATTEND Physician Assistant | DX: Z12.31 Encounter for screening mammogram for malignant neoplasm of breast (principal) ==

== ENCOUNTER → 2021-05-14 | Outpatient (CLI) | payer MEDICARE, OTHER | END | disposition home or self-care (01) | LOC: MAMMO 05-08 15:00 | PROVIDERS: ATTEND Physician Assistant | DX: Z12.31 Encounter for screening mammogram for malignant neoplasm of breast (principal) ==

== ENCOUNTER 2021-07-19 11:20 | Emergency (ER) | payer MEDICARE, OTHER ==
[~2021-07-19] VITALS: Ht 157.5 cm; Wt 86.2 kg
[2021-07-19 11:32] VITALS: BP 123/78
[2021-07-19] MEDS ORDERED: PREDNISONE20 M1 PO (13:40)
[2021-07-19] MEDS ORDERED: ZITHROMAX250 MG PO (13:40)
== END 2021-07-19 13:58 | disposition home or self-care (01) ==
LOC: ED 11:20
DX: J06.9 Acute upper respiratory infection, unspecified (principal); Z20.822 Contact with and (suspected) exposure to COVID-19; Z88.1 Allergy status to other antibiotic agents; Z88.8 Allergy status to other drugs, medicaments and biological substances; Z88.2 Allergy status to sulfonamides; Z79.899 Other long term (current) drug therapy; Z79.82 Long term (current) use of aspirin

== ENCOUNTER 2021-07-27 16:25 | Emergency (ER) | payer MEDICARE, OTHER ==
[~2021-07-27] VITALS: Ht 157.4 cm; Wt 86.2 kg
[2021-07-27 16:50] VITALS: BP 137/72
[2021-07-27 20:38] LABS: BASO % 0.3 % (0.0-1.0); EOS % 0.3 % (1.0-4.0); HEMATOCRIT 35.6 % (37.0-47.0); LYMPH # 3.1 10*3/uL (1.3-4.4); LYMPH % 25.4 % (27.0-41.0); MEAN CELL VOLUME 79.1 fl (81.0-99.0); MEAN CORPUSCULAR HGB 25.8 pg (27.0-31.0); MEAN CORPUSCULAR HGB CONC 32.6 g/dl (33.0-37.0); MEAN PLATELET VOLUME 9.4 fl (9.6-12.3); MONO # 0.7 10*3/uL (0.1-1.0); MONO % 5.3 % (3.0-9.0); NEUT # 8.4 10*3/uL (2.3-7.9); NEUT % 68.3 % (47.0-73.0); PLATELET COUNT AUTOMATED 398 10*3/uL (130-400); RED CELL DISTRI WIDTH 13.9 % (0-14.5); WHITE BLOOD COUNT 12.3 10*3/uL (4.8-10.8)
[2021-07-27 20:50] LABS: ALBUMIN 3.6 gm/dl (3.1-4.5); ALKALINE PHOSPHATASE 86 U/L (45-117); BUN 16 mg/dl (7-24); CHLORIDE 100 mmol/L (98-107); CREATININE 0.71 mg/dL (0.55-1.02); POTASSIUM 3.6 mmol/L (3.5-5.1); SGOT/AST 12 IU/L (3-35); SGPT/ALT 25 U/L (12-78); SODIUM 136 mmol/L (136-145); TOTAL PROTEIN 7.4 gm/dL (6.4-8.2)
[2021-07-27] MEDS ORDERED: PREDNISONE20 M1 PO (21:45)
== END 2021-07-27 22:02 | disposition home or self-care (01) ==
LOC: ED 16:25
PROVIDERS: Internal Medicine
DX: J40 Bronchitis, not specified as acute or chronic (principal); Z79.899 Other long term (current) drug therapy

== ENCOUNTER → 2021-11-20 | Outpatient (CLI) | payer MEDICARE, OTHER | END | disposition home or self-care (01) | LOC: CARD 11:49 | PROVIDERS: ATTEND Physician Assistant | DX: I07.1 Rheumatic tricuspid insufficiency (principal) ==

== ENCOUNTER → 2022-05-27 | Outpatient (CLI) | payer MEDICARE, OTHER | END | disposition home or self-care (01) | LOC: MAMMO 12:54 | PROVIDERS: ATTEND Physician Assistant | DX: Z12.31 Encounter for screening mammogram for malignant neoplasm of breast (principal) ==

== ENCOUNTER → 2024-01-07 | Outpatient (CLI) | payer MEDICARE, OTHER | END | disposition home or self-care (01) | LOC: MAMMO 13:31 | PROVIDERS: ATTEND Physician Assistant | DX: Z12.31 Encounter for screening mammogram for malignant neoplasm of breast (principal) ==

== ENCOUNTER → 2025-02-15 | Outpatient (CLI) | payer MEDICARE | END | disposition home or self-care (01) | LOC: MAMMO 14:57 | PROVIDERS: ATTEND Physician Assistant | DX: Z12.31 Encounter for screening mammogram for malignant neoplasm of breast (principal); R92.313 Mammographic fatty tissue density, bilateral breasts ==

== ENCOUNTER 2025-07-16 12:07 | Emergency (ER) | payer MEDICARE ==
[~2025-07-16] VITALS: Ht 157.4 cm; Wt 86.6 kg
[2025-07-16 12:29] VITALS: BP 154/76
[2025-07-16] MEDS ORDERED: Albuterol Sulf/Ipratropium 3 ML VIAL NEB ONE (12:50)
[2025-07-16] MEDS ORDERED: Dexamethasone Sodium Phospha 20 MG/5 ML VIAL IV ONE (12:50)
[2025-07-16 13:07] LABS: BASO # 0.1 10*3/uL (0.0-0.1); BASO % 0.5 % (0.0-1.0); EOS # 0.1 10*3/uL (0.0-0.4); EOS % 1.2 % (1.0-4.0); MEAN CELL VOLUME 81.6 fl (81.0-99.0); MEAN CORPUSCULAR HGB 26.0 pg (27.0-31.0); MEAN PLATELET VOLUME 10.1 fl (9.6-12.3); MONO # 0.6 10*3/uL (0.1-1.0); MONO % 5.9 % (3.0-9.0); NEUT # 8.4 10*3/uL (2.3-7.9); NEUT % 76.8 % (47.0-73.0); NUCLEATED RED BLOOD CELL 0.0 % (0.0-0.0); NUCLEATED RED BLOOD CELL 0.0 10*3/uL (0.0-0.0); PLATELET COUNT AUTOMATED 275 10*3/uL (130-400); RED CELL DISTRI WIDTH 13.5 % (0-14.5)
[2025-07-16 13:26] LABS: BUN 15 mg/dl (9-23)
[2025-07-16] MEDS ORDERED: Ipratropium Brom3 ML INH (14:40)
[2025-07-16] MEDS ORDERED: PREDNISONE20 M1 PO (14:40)
== END 2025-07-16 14:55 | disposition home or self-care (01) ==
LOC: ED 12:07
PROVIDERS: Emergency Medicine
DX: J20.8 Acute bronchitis due to other specified organisms (principal); I10 Essential (primary) hypertension; J45.909 Unspecified asthma, uncomplicated; K21.9 Gastro-esophageal reflux disease without esophagitis; E78.00 Pure hypercholesterolemia, unspecified; F41.9 Anxiety disorder, unspecified; Z90.49 Acquired absence of other specified parts of digestive tract; Z90.89 Acquired absence of other organs; Z98.890 Other specified postprocedural states; Z88.2 Allergy status to sulfonamides; Z88.8 Allergy status to other drugs, medicaments and biological substances; Z20.822 Contact with and (suspected) exposure to COVID-19